=== PATIENT | female | born 1985 | race African-American/Black ===

== ENCOUNTER 2017-04-02 01:01 | Inpatient (IN) | payer OTHER ==
--- NOTE | 2017-04-02 01:51 | PDOC ---
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 The patient reports that she was diagnosed with a DVT in the right leg 6 months ago and has been treated on xeralto. However, she states over the past few weeks she has been experiencing worsening pain and swelling to her right leg prompting her presentation to the ED for evaluation. She denies fevers, chills , SOB, chest pain, abdominal pain, nausea, vomiting, or changes with urination or bowel movements. Past History - Past Medical History Allergies/Adverse Reactions: Allergies Allergy/AdvReac Type Severity Reaction Status Date / Time No Known Allergies Allergy Verified 04/02/17 01:37 Home Medications: Ambulatory Orders NK [No Known Home Medication] 04/27/15 - Reproductive History (#): 2 Para: 1 Therapeutic (s) & number: No Spontaneous : 0 - Suicide/Smoking/Psychosocial Hx Smoking History: Never smoked Have you smoked in the past 12 months: No Number of Cigarettes Smoked Daily: 3 Information on smoking cessation initiated: No 'Breaking Loose' booklet given: 02/13/14 Hx Alcohol Use: No Drug/Substance Use Hx: No Substance Use Type: None Hx Substance Use Treatment: No Review of Systems - Review of Systems Comments:: 04/02/17 02:07 Constitutional: No fevers, chills, fatigue, malaise HEENT: No Rhinorrhea, nasal congestion, visual changes Cardiovascular: No chest pain, syncope, palpitations, lightheadedness Respiratory: No Cough, SOB, Hemoptysis, Gastrointestinal: No Abdominal pain, Nausea, Vomiting, Constipation, Diarrhea, Melena Genitourinary: No Dysuria, Frequency, Urgency, Hesitancy, Hematuria, Flank pain Musculoskeletal: Right lower extremity swelling and pain. No Myalgia, arthralgia Skin: No rashes, itching, bruising, pallor Neurologic: No Headache, Dizziness, Numbness, Weakness, or Tingling Psychiatric: No Hallucinations. No SI or HI *Physical Exam - Vital Signs Last Vital Signs Temp Pulse Resp BP Pulse Ox 98.9 F 78 18 150/83 100 04/02/17 01:37 04/02/17 01:37 04/02/17 01:37 04/02/17 01:37 04/02/17 01:37 - Physical Exam Comments: 04/02/17 02:08 General Appearance: Nourished. No Apparent Distress HEENT: No Pharyngeal Erythema, Tonsillar Exudate, Tonsillar Erythema Neck: No Cervical Lymphadenopathy Respiratory/Chest: Lungs Clear, Normal Breath Sounds. No Crackles, Rales, Rhonchi, Wheezing Cardiovascular: Regular Rhythm, Regular Rate. No Murmur, Gallops, Rubs Gastrointestinal/Abdominal: Normal Bowel Sounds, Soft. No Guarding, Rebound, Tenderness Musculoskeletal: No CVA Tenderness Extremity: Right lower extremity 3+ pitting edema up to the thigh with tenderness to palpation. 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 Given the patient's history of a DVT and worsening symptoms, it is likely her complaints are due to a worsening DVT in the right leg despite the patient being on xeralto. We will obtain a cbc, cmp, coags and a dvt us to evaluate further. We will continue to monitor and reassess. 04/02/17 03:55 CBC, cmp are unremarkable. DVT US demonstrates DVT from the superficial femoral to the popleteal veins as preliminarily read by the contact lens blocker and cutter radiologist. We discussed the results with the patient who is refusing heparin at this time. She will require admission for further management. 04/02/17 04:41 We discussed with the hospitalist team who accepted the patient for admission. The patient is continuing to refuse heparin at this time. *DC/Admit/Observation/Transfer Diagnosis at time of Disposition: DVT (deep venous thrombosis) Qualifiers: DVT location: lower extremity Affected thrombotic vein of extremity: popliteal Chronicity: unspecified Laterality: right Qualified Code(s): I82.431 - Acute embolism and thrombosis of right popliteal vein - Discharge Dispostion Condition at time of disposition: Stable Admit: Yes - Referrals - Patient Instructions - Post Discharge Activity
--- NOTE | 2017-04-02 02:05 | PDOC ---
Attending Attestation - HPI HPI: 04/02/17 02:08 The patient is a 31 year old female, with a recent past medical history of DVT, who presents to the emergency department with worsening right lower extremity swelling and pain. Patient reports she was diagnosed with a DVT in the right leg 6 months ago and was treated with Xarelto. Over the past few weeks patient reports she has noted increased swelling and pain to her right leg, which brought her to the ER today. She denies any numbness or tingling in the lower extremities. She denies any associated chest pain, shortness of breath, diaphoresis, or palpitations. She denies any recent fever, chills, cough, headache, or dizziness. She denies any abdominal pain, nausea, or vomiting. She denies any recent travel or sick contacts. Allergies: NKDA - Medical Decision Making 04/02/17 02:08 Documentation prepared by Hunter Perez, acting as er medical technician for Jaleesa Vaughan MD. <Hunter Perez - Last Filed: 04/02/17 02:08> - Resident Resident Name: Zion Casas - ED Attending Attestation I have performed the following: I have examined & evaluated the patient, The case was reviewed & discussed with the resident, I agree w/resident's findings & plan - Physicial Exam PE: 04/02/17 04:26 Agree with resident exam. Pt has no visible swelling or redness of right lateral thigh. Pt states that she "felt funny" and knew something was wrong in that area. - Medical Decision Making 04/02/17 03:55 Patient Name: TALON ISSA THIS IS A PRELIMINARY REPORT FROM [facility] DATE OF SERVICE: 2017-04-02 01:51:16 IMAGES: 43 EXAM: DUPLEX VASCULAR US-2 LEGS HISTORY: Concern for deep vein thrombosis COMPARISON: None. FINDINGS: There is echogenic material within a noncompressible superficial femoral vein on the right. This extends to the popliteal vein. IMPRESSION: Positive for deep vein thrombosis extending from the mid superficial femoral vein on the right to the popliteal vein. THIS DOCUMENT HAS BEEN ELECTRONICALLY SIGNED 04/02/17 04:27 Pt undestands that her DVT is getting larger, but she is refusing heparin at this time. She wants to speak to her vasc surgeon in the AM. We have paged Dr. Saldana multiple times, no response. <Jaleesa Vaughan - Last Filed: 04/02/17 04:28>
[2017-04-02 02:59] LABS: BASO % 0.4 % (0-2.0); EOS % 2.1 % (0-4.5); HEMATOCRIT 39.7 % (32.4-45.2); HEMOGLOBIN 12.9 GM/dL (10.7-15.3); LYMPH % 27.9 % (8-40); MCH 27.1 pg (25.7-33.7); MCHC 32.6 g/dl (32.0-36.0); MEAN CELL VOLUME 83.1 fl (80-96); MEAN PLT VOLUME 8.3 fl (7.5-11.1); MONO % 4.8 % (3.8-10.2); NEUT % 64.8 % (42.8-82.8); PLATELET COUNT 301 K/MM3 (134-434); RBC 4.77 M/mm3 (3.60-5.2); RDW 13.5 % (11.6-15.6); WHITE BLOOD COUNT 10.9 K/mm3 (4.0-10.0)
[2017-04-02 03:22] LABS: INR 1.27 (0.82-1.09); PROTHROMBIN TIME (PATIENT) 14.4 SEC (9.98-11.88)
[2017-04-02 03:29] LABS: ALBUMIN 3.6 g/dl (3.4-5.0); ALK PHOS 74 U/L (45-117); ANION GAP 7 (8-16); BILIRUBIN,TOTAL 0.3 mg/dL (0.2-1.0); BLOOD UREA NITROGEN 11 mg/dL (7-18); CALCIUM 8.5 mg/dL (8.5-10.1); CHLORIDE 105 mmol/L (98-107); CO2 26 mmol/L (21-32); GLUCOSE,RANDOM 94 mg/dL (74-106); SGOT/AST 17 U/L (15-37); SGPT/ALT 23 U/L (12-78); SODIUM 138 mmol/L (136-145); TOT PROT 7.2 g/dl (6.4-8.2)
--- NOTE | 2017-04-02 05:50 | PN ---
Teaching Attending Note Name of Resident: Azul Rucker ATTENDING PHYSICIAN STATEMENT I saw and evaluated the patient. I reviewed the resident's note and discussed the case with the resident. I agree with the resident's findings and plan as documented. SUBJECTIVE: OBJECTIVE: ASSESSMENT AND PLAN: 31 y/o female with class III obesity presented to the hospital with acute swelling of the Right thigh, patient has a history of DVT that was being managed with Rivaroxiban daily, according to the patient and her boyfriend she was taking the medication frequently every night at 10pm. she presented to today with the pain in her calf and swelling and is being admitted for acute DVT patient and her partner were refusing initially to be started or taking any medication in the ER, she refused heparin drip and stated that she doesn't trust the doctors since they have not found out what is wrong with her. the patient at one point was thinking of signing out AMA because she does not want to stay. however i convinced her to stay to start the therapy plan: admit to the hospital as observation start the patient on heparin obtain coagulation factors study. obtain PT/INR initially, mix-studies consult hematology consult vascular stop rivaroxiban
[2017-04-02] MEDS ORDERED: HEPARIN NA (PORCINE) 5,000 UNITS/ML 1ML VIAL IVPUSH PRN ×2 (06:57)
[2017-04-02] MEDS ORDERED: HEPARIN NA (PORCINE) 5,000 UNITS/ML 1ML VIAL IVPUSH ONE (06:58)
[2017-04-02] MEDS ORDERED: HEPARIN - 25,000 UNIT in SODIUM CHLORIDE 495 ML IV SCH (07:00)
--- NOTE | 2017-04-02 07:00 | HP ---
CHIEF COMPLAINT: Right LE swelling and pain PCP: none HISTORY OF PRESENT ILLNESS: 31F with PMH of DVT (6 mo ago, on Xarelto) and morbid obesity, presents with Right LE swelling and pain. Symptoms have been increasing over the past few weeks, but got significantly worse yesterday prompting pt to come to ER. Pt reports strict compliance with Xarelto. Pt denies trauma to the site. Pt denies OCP use. Pt denies any other medical conditions. Pt's boyfriend is at bedside. At first, pt refusing heparin drip, now agreeable. Pt denies chest pain, palpitations, dyspnea, abdominal pain, fever, chills, headache, dizziness , nausea, vomiting. ER course was notable for: (1) LE Duplex reveals DVT to Right LE from mid superifical femoral to popliteal veins on prelim read (2) VSS (3) mild leukocytosis PAST MEDICAL HISTORY: DVT (6 mo ago, on Xarelto) morbid obesity PAST SURGICAL HISTORY: 2007, Social History: Smokin cigarettes daily Alcohol: denies Drugs: denies Family History: mom - DM, htn Allergies No Known Allergies Allergy (Verified 04/02/17 01:37) HOME MEDICATIONS: Home Medications Medication Instructions Recorded NK [No Known Home Medication] 04/27/15 REVIEW OF SYSTEMS CONSTITUTIONAL: Absent: fever, chills, diaphoresis, generalized weakness HEENT: Absent: rhinorrhea, nasal congestion, visual changes CARDIOVASCULAR: Absent: chest pain, syncope, palpitations, irregular heart rate, lightheadedness RESPIRATORY: Absent: cough, shortness of breath, wheezing, stridor, hemoptysis GASTROINTESTINAL: Absent: abdominal pain, abdominal distension, nausea, vomiting, diarrhea, constipation, melena, hematochezia GENITOURINARY: Absent: dysuria, frequency, urgency, hesitancy, hematuria MUSCULOSKELETAL: Right LE swelling and pain Absent: myalgia, arthralgia, joint swelling, back pain, neck pain SKIN: Absent: rash, itching, pallor NEUROLOGIC: Absent: headache, focal weakness or paresthesias, dizziness PSYCHIATRIC: Absent: anxiety, depression, suicidal or homicidal ideation, hallucinations. PHYSICAL EXAMINATION Vital Signs - 24 hr 04/02/17 01:37 Temperature 98.9 F Pulse Rate 78 Respiratory 18 Rate Blood Pressure 150/83 O2 Sat by Pulse 100 Oximetry (%) GENERAL: Awake, alert, and fully oriented, in no acute distress. HEAD: Normal with no signs of trauma. EARS, NOSE, THROAT: Moist mucous membranes. NECK: Supple without lymphadenopathy. LUNGS: Breath sounds equal, clear to auscultation bilaterally. No wheezes, and no crackles. No accessory muscle use. HEART: Regular rate and rhythm, normal S1 and S2 without murmur, rub or gallop. ABDOMEN: Soft, nontender, not distended, normoactive bowel sounds, no guarding. LOWER EXTREMITIES: Right LE with 3+ pitting edema up to the thigh, +tenderness. 2+ [place] pulses. NEUROLOGICAL: Cranial nerves II-XII grossly intact. Normal speech. PSYCHIATRIC: Cooperative. Good eye contact. Appropriate mood and affect. SKIN: Warm, dry, normal turgor, no rashes or lesions noted. Laboratory Results - last 24 hr 04/02/17 04/02/17 04/02/17 02:46 02:46 02:46 WBC 10.9 H D RBC 4.77 Hgb 12.9 Hct 39.7 MCV 83.1 MCH 27.1 MCHC 32.6 RDW 13.5 Plt Count 301 MPV 8.3 Neutrophils % 64.8 Lymphocytes % 27.9 Monocytes % 4.8 Eosinophils % 2.1 Basophils % 0.4 PT with INR INR PTT (Actin FS) 39.2 H Sodium 138 Potassium 4.0 Chloride 105 Carbon Dioxide 26 Anion Gap 7 L BUN 11 Creatinine 1.0 Creat Clearance w eGFR > 60 Random Glucose 94 Calcium 8.5 Total Bilirubin 0.3 AST 17 ALT 23 Alkaline Phosphatase 74 Total Protein 7.2 Albumin 3.6 04/02/17 02:46 WBC RBC Hgb Hct MCV MCH MCHC RDW Plt Count MPV Neutrophils % Lymphocytes % Monocytes % Eosinophils % Basophils % PT with INR 14.40 H INR 1.27 H PTT (Actin FS) Sodium Potassium Chloride Carbon Dioxide Anion Gap BUN Creatinine Creat Clearance w eGFR Random Glucose Calcium Total Bilirubin AST ALT Alkaline Phosphatase Total Protein Albumin ASSESSMENT/PLAN: 31F with PMH of DVT (6 mo ago, on Xarelto), presents with Right LE swelling and pain, admitted to Obs for acute DVT. # acute Right LE DVT - heparin drip -> monitor PTT - heparin bolus now - hold Xarelto - Vascular Surgery Consult - Hematology Consult # mild leukocytosis - likely reactive - continue to monitor # FEN - Fluids: po - Electrolytes: wnl, continue to monitor - Nutrition: regular diet Visit type - Emergency Visit Emergency Visit: Yes ED Registration Date: 04/02/17 Care time: The patient presented to the Emergency Department on the above date and was hospitalized for further evaluation of their emergent condition. - New Patient This patient is new to me today: Yes Date on this admission: 04/02/17 - Critical Care Critical Care patient: No Hospitalist Screening - Colonoscopy Questionnaire Colonoscopy Questionnaire: Colonoscopy Questionnaire - Patient: 50 - 75 years old and never had a screening colonoscopy: No History of colon or rectal polyps, or CA: Unknown History of IBD, Crohn's disease or UC: Unknown History of abdominal radiation therapy as a child: Unknown - Relative: 1 with colon or rectal CA, or polyps at age 60 or younger: Unknown Colon or rectal CA diagnosed at age 45 or younger: Unknown Multiple relatives with colon or rectal CA: Unknown - Outcome: Screening Result: Negative Screen
[2017-04-02 08:29] VITALS: BMI 48.5
[2017-04-02] MEDS ORDERED: ENOXAPARIN NA (PORCINE) 40 MG/0.4 ML DISP.SYRIN SQ ONE ×2 (09:19→19:57)
[2017-04-02] MEDS ORDERED: ENOXAPARIN NA (PORCINE) 100 MG/1 ML DISP.SYRIN SQ ONE ×2 (09:19→19:57)
[2017-04-02] MEDS ORDERED: ENOXAPARIN NA (PORCINE) 40 MG/0.4 ML DISP.SYRIN SQ SCH (10:00)
[2017-04-02] MEDS: ENOXAPARIN 100 MG, ENOXAPARIN 40 MG SQ SCH ×2 (10:28→21:18)
--- NOTE | 2017-04-02 12:08 | CONSULT ---
Consult Consult Specialty:: Hematology - History of Present Illness History of Present Illness: 31 year old female with a history of DVT on xeralto who presents for evaluation of worsening right lower extremity swelling and pain. The patient reports that she was diagnosed with a DVT in the right leg at [facility] has been treated on xeralto. However, she states over the past few weeks she has been experiencing worsening pain and swelling to her right leg prompting her presentation to the ED for evaluation. She denies fevers, chills, SOB, chest pain, abdominal pain, nausea, vomiting, or changes with urination or bowel movements. Sees hematology. - History Source History Provided By: Patient, Family Member, Medical Record - Past Medical History ...LMP: 03/08/17 ...: No - Alcohol/Substance Use Hx Alcohol Use: No - Smoking History Smoking history: Current every day smoker Have you smoked in the past 12 months: Yes Aproximately how many cigarettes per day: 10 Home Medications - Allergies Allergies/Adverse Reactions: Allergies Allergy/AdvReac Type Severity Reaction Status Date / Time No Known Allergies Allergy Verified 04/02/17 01:37 - Home Medications Home Medications: Ambulatory Orders NK [No Known Home Medication] 04/27/15 Review of Systems - Review of Systems Musculoskeletal: reports: Extremity Pain Physical Exam Vital Signs: Vital Signs Temperature 98.6 F 04/02/17 08:10 Pulse Rate 68 04/02/17 08:10 Respiratory Rate 18 04/02/17 08:10 Blood Pressure 124/78 04/02/17 08:10 O2 Sat by Pulse Oximetry (%) 100 04/02/17 01:37 Constitutional: Yes: Well Nourished, No Distress, Anxious Eyes: Yes: Conjunctiva Clear HENT: Yes: Atraumatic, Normocephalic Neck: Yes: Supple, Trachea Midline Cardiovascular: Yes: Regular Rate and Rhythm Respiratory: Yes: Regular, CTA Bilaterally Gastrointestinal: Yes: Normal Bowel Sounds, Soft, Abdomen, Obese Extremities: Yes: Other (rle >> lle) Edema: Yes Neurological: Yes: Alert, Oriented Labs: CBC, BMP 04/02/17 02:46 04/02/17 02:46 Imaging - Results Ultrasound: Report Reviewed Problem List - Problems (1) DVT (deep venous thrombosis) Code(s): I82.409 - ACUTE EMBOLISM AND THOMBOS UNSP DEEP VN UNSP LOWER EXTREMITY Qualifiers: DVT location: lower extremity Affected thrombotic vein of extremity: popliteal Chronicity: unspecified Laterality: right Qualified Code(s): I82.431 - Acute embolism and thrombosis of right popliteal vein Assessment/Plan ACUTE DVT ( second episode) Rt LE Xarelto failure LA was positive, will repeat now as she is off xarelto Other hypercoag w/u was negative in 2017 Long discussion about choice of AC going forward Did not want heparin drip therefore had to continue Lovenox ( though BMI >40) to bridge to coumadin with INR of 2-3, discussed in detail with spouse and pt. for anti xa levels 4hrs post lovenox tomorrow leg elevation for indefinite AC likely in this young pt Discussed with her OP practicing urologist for f/u with him upon DC. tt 40m
--- NOTE | 2017-04-02 14:01 | PN ---
Physical Exam: SUBJECTIVE: Patient seen and examined at the bedside. Patient reports that she does not have a family history of DVT or PE. She reports that about 1 year ago, she fell going down the stairs when her right leg gave out. She developed a hematoma of the right leg after the fall. After that incident, she developed pain and swelling of that leg and was told she had a DVT and was put on Xarelto by her power hammer operator. She states she was compliant with her Xarelto 20mg daily and took it daily at 10a.m. She reports that her right leg remains swollen and painful prompting her ED visit. OBJECTIVE: Vascular study, right leg acute DVT extending from the right mid superficial femoral vein to the popliteal vein. patient refusing heparin drip, agreeable to Lovenox Will bridge to Coumadin Vital Signs Period Temp Pulse Resp BP Sys/[place] Pulse Ox Last 24 Hr 98.6 F-98.9 F 68-78 18-18 124-150/78-83 100 GENERAL: The patient is awake, alert, and fully oriented, in no acute distress. HEAD: Normal with no signs of trauma. EYES: PERRL, extraocular movements intact, sclera anicteric, conjunctiva clear. No ptosis. ENT: Ears normal, nares patent, oropharynx clear without exudates, moist mucous membranes. NECK: Trachea midline, full range of motion, supple. LUNGS: Breath sounds equal, clear to auscultation bilaterally, no wheezes, no crackles, no accessory muscle use. HEART: Regular rate and rhythm ABDOMEN: Soft, nontender, nondistended, normoactive bowel sounds, no guarding, no rebound, no hepatosplenomegaly, no masses. EXTREMITIES: Right leg painful to touch, calf tenderness NEUROLOGICAL: Normal speech, gait not observed. PSYCH: Normal mood, normal affect. SKIN: Warm, dry, normal turgor, no rashes or lesions noted Laboratory Results - last 24 hr 04/02/17 04/02/17 04/02/17 02:46 02:46 02:46 WBC 10.9 H D RBC 4.77 Hgb 12.9 Hct 39.7 MCV 83.1 MCH 27.1 MCHC 32.6 RDW 13.5 Plt Count 301 MPV 8.3 Neutrophils % 64.8 Lymphocytes % 27.9 Monocytes % 4.8 Eosinophils % 2.1 Basophils % 0.4 PT with INR INR PTT (Actin FS) 39.2 H Sodium 138 Potassium 4.0 Chloride 105 Carbon Dioxide 26 Anion Gap 7 L BUN 11 Creatinine 1.0 Creat Clearance w eGFR > 60 Random Glucose 94 Calcium 8.5 Total Bilirubin 0.3 AST 17 ALT 23 Alkaline Phosphatase 74 Total Protein 7.2 Albumin 3.6 04/02/17 02:46 WBC RBC Hgb Hct MCV MCH MCHC RDW Plt Count MPV Neutrophils % Lymphocytes % Monocytes % Eosinophils % Basophils % PT with INR 14.40 H INR 1.27 H PTT (Actin FS) Sodium Potassium Chloride Carbon Dioxide Anion Gap BUN Creatinine Creat Clearance w eGFR Random Glucose Calcium Total Bilirubin AST ALT Alkaline Phosphatase Total Protein Albumin Active Medications Generic Name Dose Route Start Last Admin Trade Name Freq PRN Reason Stop Dose Admin Acetaminophen 650 mg 04/02/17 14:00 Tylenol - PO Q6H [facility] Enoxaparin Sodium 100 mg/ 140 mg 04/02/17 10:00 04/02/17 10:28 Enoxaparin Sodium 40 mg SQ 140 mg BID [facility] Administration Nicotine 21 mg 04/02/17 14:00 Nicoderm Patch - TD DAILY [facility] Warfarin Sodium 7.5 mg 04/02/17 18:00 Coumadin - PO DAILY@1800 [facility] ASSESSMENT/PLAN: Patient is a 31 year old female with a significant past medical history of DVT ( on Xarelto) and morbid obesity. She presents to the ED on 04/02/2017 with complaints of right lower extremity pain and swelling. Patient reports that her right leg symptoms have been increasing in the past few days. She reports compliance with her Xarelto that she takes daily at 10.a.m. Patient denies any trauma to the site, is on on control pills and is currently a pack a day smoker. Patient reports that she does not have a family history of DVT or PE. She reports that about 1 year ago, she fell going down the stairs when her right leg gave out. She developed a hematoma of the right leg after the fall. After that incident, she developed pain and swelling of that leg and was told she had a DVT and was put on Xarelto by her power hammer operator. She states she was compliant with her Xarelto 20mg daily and took it daily at 10a.m. She reports that her right leg remains swollen and painful prompting her ED visit. On admission, patient refused initiation of a heparin drip, but is agreeable to Lovenox injections. She understands that we will be bridging her to Coumadin. I discussed the importance of smoking cessation, she denies control use, denies recent travel, denies any trauma. She does not report any family history of DVT/PE or any other hematological conditions. Imaging: Vascular study, right leg acute DVT extending from the right mid superficial femoral vein to the popliteal vein. Hematology: Right Leg DVT: Stop Xarelto, on Lovenox weight based @ 140mg BID with a bridge to Coumadin with a goal inr between 2 and 3 Vascular study shows acute right leg DVT Has had hypercoag study with her power hammer operator Hematology following Vascular consult Right leg pain controlled with Tylenol 650mg scheduled Psyche: Smoke cessation discussed On Nicotine patch F.E.N. Fluids: PO adequate, monitor electrolytes, regular diet Prophylaxis: On coumadin, zantac Visit type - Emergency Visit Emergency Visit: Yes ED Registration Date: 04/02/17 Care time: The patient presented to the Emergency Department on the above date and was hospitalized for further evaluation of their emergent condition. - New Patient This patient is new to me today: Yes Date on this admission: 04/02/17 - Critical Care Critical Care patient: No - Discharge Referral Referred to [facility] Yes Physician Referral: Jelani Hou MD ([facility])
[2017-04-02] MEDS: NICOTINE 21 MG/24 HOURS TOPICAL PATCH TD SCH (16:28)
[2017-04-02] MEDS: ACETAMINOPHEN 325 MG TABLET (FP) PO SCH (16:31)
[2017-04-02] MEDS ORDERED: RIVAROXABAN 15 MG TABLET PO SCH (18:00)
[2017-04-02] MEDS: WARFARIN NA 7.5 MG TABLET (FP) PO SCH (18:34)
[2017-04-03] MEDS: ACETAMINOPHEN 325 MG TABLET (FP) PO SCH ×2 (07:19→07:20)
[2017-04-03 07:52] LABS: INR 1.18 (0.82-1.09); PROTHROMBIN TIME (PATIENT) 13.3 SEC (9.98-11.88)
[2017-04-03] MEDS ORDERED: ACETAMINOPHEN 325 MG TABLET (FP) PO PRN (08:10)
[2017-04-03] MEDS ORDERED: ENOXAPARIN NA (PORCINE) 100 MG/1 ML DISP.SYRIN SQ ONE ×2 (08:43→20:55)
[2017-04-03] MEDS ORDERED: ENOXAPARIN NA (PORCINE) 40 MG/0.4 ML DISP.SYRIN SQ ONE ×2 (08:43→20:54)
[2017-04-03] MEDS: traMADol HCL 50 MG TABLET PO PRN (08:47)
[2017-04-03] MEDS: NICOTINE 21 MG/24 HOURS TOPICAL PATCH TD SCH (09:11)
[2017-04-03] MEDS: RANITIDINE HCL 150 MG TABLET (FP) PO SCH (09:12)
[2017-04-03] MEDS: ENOXAPARIN 100 MG, ENOXAPARIN 40 MG SQ SCH ×2 (09:12→20:59)
[2017-04-03 11:05] LABS: ALBUMIN 3.5 g/dl (3.4-5.0); ANION GAP 9 (8-16); BLOOD UREA NITROGEN 9 mg/dL (7-18); CALCIUM 8.1 mg/dL (8.5-10.1); CHLORIDE 105 mmol/L (98-107); CO2 24 mmol/L (21-32); GLUCOSE,RANDOM 93 mg/dL (74-106); POTASSIUM 3.5 mmol/L (3.5-5.1); SODIUM 138 mmol/L (136-145)
[2017-04-03 11:08] LABS: BILIRUBIN,TOTAL 0.5 mg/dL (0.2-1.0); CHOLESTEROL 139 mg/dL (50-200); CREATININE 0.9 mg/dL (0.55-1.02); LDL CHOLESTEROL (ONLY SJRH) 83 mg/dL (5-100); SGOT/AST 20 U/L (15-37); SGPT/ALT 22 U/L (12-78); TRIGLYCERIDES 97 mg/dL (35-160)
[2017-04-03 11:09] LABS: ALK PHOS 74 U/L (45-117); HDL CHOLESTEROL 48 mg/dL (40-60)
[2017-04-03] MEDS ORDERED: LORazepam 0.5 MG TABLET PO ONE (11:28)
--- NOTE | 2017-04-03 11:29 | PN ---
Physical Exam: SUBJECTIVE: Patient seen and examined at the bedside. OBJECTIVE: Reports feeling overwhelmed, wants surgical options. Her asking about possible IVC filter, but wants to discuss benefits and risk with surgeon first Assured them that vascular and IR have been consulted Not short of breath, no chest pain Echo ordered as pt has hypertension and is morbidly obese BP slightly elevated, pt very anxious, crying Will watch BP and trend, may start lisinopril later today if remains elevated emotional support provided, and patient reassured ativan 0.5mg x 1, tramadol ordered, tylenol not relieving pain Vital Signs Period Temp Pulse Resp BP Sys/[place] Pulse Ox Last 24 Hr 97.6 F-98.9 F 64-88 18-18 136-154/60-99 GENERAL: The patient is awake, alert, and fully oriented, in no acute distress. HEAD: Normal with no signs of trauma. EYES: PERRL, extraocular movements intact, sclera anicteric, conjunctiva clear. No ptosis. ENT: Ears normal, nares patent, oropharynx clear without exudates, moist mucous membranes. NECK: Trachea midline, full range of motion, supple. LUNGS: Breath sounds equal, clear to auscultation bilaterally, no wheezes, no crackles, no accessory muscle use. HEART: Regular rate and rhythm ABDOMEN: Soft, nontender, nondistended, normoactive bowel sounds, no guarding, no rebound, no hepatosplenomegaly, no masses. EXTREMITIES: Right leg painful to touch, calf tenderness NEUROLOGICAL: Normal speech, gait not observed. PSYCH: Normal mood, normal affect. SKIN: Warm, dry, normal turgor, no rashes or lesions noted Laboratory Results - last 24 hr 04/03/17 04/03/17 07:00 10:45 PT with INR 13.30 H INR 1.18 H Sodium 138 Potassium 3.5 Chloride 105 Carbon Dioxide 24 Anion Gap 9 BUN 9 Creatinine 0.9 Creat Clearance w eGFR > 60 Random Glucose 93 Calcium 8.1 L Total Bilirubin 0.5 D AST 20 ALT 22 Alkaline Phosphatase 74 Total Protein 7.0 Albumin 3.5 Triglycerides 97 Cholesterol 139 Total LDL Cholesterol 83 HDL Cholesterol 48 Active Medications Generic Name Dose Route Start Last Admin Trade Name Freq PRN Reason Stop Dose Admin Acetaminophen 650 mg 04/03/17 08:10 Tylenol - PO Q6H PRN FEVER Enoxaparin Sodium 100 mg/ 140 mg 04/02/17 10:00 04/03/17 09:12 Enoxaparin Sodium 40 mg SQ 140 mg BID DARON Administration Nicotine 21 mg 04/02/17 14:00 04/03/17 09:11 Nicoderm Patch - TD 21 mg DAILY DARON Administration Ranitidine HCl 150 mg 04/03/17 10:00 04/03/17 09:12 Zantac - PO 150 mg DAILY DARON Administration Tramadol HCl 50 mg 04/03/17 08:09 04/03/17 08:47 Ultram - PO 50 mg Q8H PRN Administration PAIN LEVEL 7 - 10 Warfarin Sodium 7.5 mg 04/02/17 18:00 04/02/17 18:34 Coumadin - PO 7.5 mg DAILY@1800 DARON Administration ASSESSMENT/PLAN: Patient is a 31 year old female with a significant past medical history of DVT ( on Xarelto) and morbid obesity. She presents to the ED on 04/02/2017 with complaints of right lower extremity pain and swelling. Patient reports that her right leg symptoms have been increasing in the past few days. She reports compliance with her Xarelto that she takes daily at 10.a.m. Patient denies any trauma to the site, is not on control pills but is currently a pack a day smoker. Patient reports that she does not have a family history of DVT or PE. She reports that about 1 year ago, she fell going down the stairs when her right leg gave out. She developed a hematoma of the right leg after the fall. After that incident, she developed pain and swelling of that leg and was told she had a DVT and was put on Xarelto by her cosmetic dentist. She states she was compliant with her Xarelto 20mg daily and took it daily at 10a.m. She reports that her right leg remains swollen and painful prompting her ED visit. On admission, patient refused initiation of a heparin drip, but is agreeable to Lovenox injections. She understands that we will be bridging her to Coumadin. I discussed the importance of smoking cessation, she denies control use, denies recent travel, denies any trauma. She does not report any family history of DVT/PE or any other hematological conditions. Imaging: Vascular study, right leg acute DVT extending from the right mid superficial femoral vein to the popliteal vein. Hematology: Right Leg DVT: Stop Xarelto, on Lovenox weight based @ 140mg BID with a bridge to Coumadin with a goal inr between 2 and 3 Vascular study shows acute right leg DVT Has had hypercoag study with her cosmetic dentist Hematology following Vascular consult Patient exploring possible surgical options Right leg pain not controlled with Tylenol 650mg, start Ultram Cardiology: Hypertension BPs trending up, monitor May start lisinopril low dose if remains elevated Monitor trend EKG and echo ordered Psyche: Current smoker, risk factor for development of DVT Smoking cessation discussed On Nicotine patch Morbid obesity Risk factor for DVT dietary consult ordered F.E.N. Fluids: PO adequate, monitor electrolytes, regular diet Prophylaxis: On coumadin, zantac Visit type - Emergency Visit Emergency Visit: Yes ED Registration Date: 04/02/17 Care time: The patient presented to the Emergency Department on the above date and was hospitalized for further evaluation of their emergent condition. - New Patient This patient is new to me today: No - Critical Care Critical Care patient: No - Discharge Referral Referred to [facility] Med P.C.: No
--- NOTE | 2017-04-03 15:00 | PN ---
Progress Note (short form) - Note Progress Note: Pt seen and examined. No events, leg feels "heavy". Constitutional: Yes: Well Nourished, No Distress, Anxious Eyes: Yes: Conjunctiva Clear HENT: Yes: Atraumatic, Normocephalic Neck: Yes: Supple, Trachea Midline Cardiovascular: Yes: Regular Rate and Rhythm Respiratory: Yes: Regular, CTA Bilaterally Gastrointestinal: Yes: Normal Bowel Sounds, Soft, Abdomen, Obese Extremities: (rle >> lle) Edema: Yes Neurological: Yes: Alert, Oriented Last Vital Signs Temp Pulse Resp BP Pulse Ox 97.6 F 65 18 141/84 100 04/03/17 10:07 04/03/17 10:07 04/03/17 10:07 04/03/17 10:07 04/02/17 01:37 CBC, BMP 04/02/17 02:46 04/03/17 10:45 Current Medications Generic Name Dose Route Start Last Admin Trade Name Freq PRN Reason Stop Dose Admin Acetaminophen 650 mg 04/03/17 08:10 Tylenol - PO Q6H PRN FEVER Enoxaparin Sodium 100 mg/ 140 mg 04/02/17 10:00 04/03/17 09:12 Enoxaparin Sodium 40 mg SQ 140 mg BID DARON Administration Lorazepam 0.5 mg 04/03/17 14:36 Ativan - PO BID PRN ANXIETY Nicotine 21 mg 04/02/17 14:00 04/03/17 09:11 Nicoderm Patch - TD 21 mg DAILY DARON Administration Ranitidine HCl 150 mg 04/03/17 10:00 04/03/17 09:12 Zantac - PO 150 mg DAILY DARON Administration Tramadol HCl 50 mg 04/03/17 08:09 04/03/17 08:47 Ultram - PO 50 mg Q8H PRN Administration PAIN LEVEL 7 - 10 Warfarin Sodium 7.5 mg 04/02/17 18:00 04/02/17 18:34 Coumadin - PO 7.5 mg DAILY@1800 DARON Administration ACUTE DVT ( second episode) Rt LE lovenox to coumadin bridge INR not therapeutic as to be expected if any procedures planned , will hold coumadin and then give UFH or LMWH ( dose to be stopped the night prior). d/w pt. d/w hospitalist [employer] Problem List - Problems (1) DVT (deep venous thrombosis) Code(s): I82.409 - ACUTE EMBOLISM AND THOMBOS UNSP DEEP VN UNSP LOWER EXTREMITY Qualifiers: DVT location: lower extremity Affected thrombotic vein of extremity: popliteal Chronicity: unspecified Laterality: right Qualified Code(s): I82.431 - Acute embolism and thrombosis of right popliteal vein
[2017-04-03] MEDS: WARFARIN NA 7.5 MG TABLET (FP) PO SCH (17:25)
--- NOTE | 2017-04-03 18:27 | EKG ---
Test Reason : Blood Pressure : / mmHG Vent. Rate : 063 BPM Atrial Rate : 063 BPM P-R Int : 162 ms QRS Dur : 094 ms QT Int : 438 ms P-R-T Axes : 043 034 008 degrees QTc Int : 448 ms SINUS RHYTHM WITH SINUS ARRHYTHMIA WITH OCCASIONAL PREMATURE VENTRICULAR COMPLEXES OTHERWISE NORMAL ECG NO PREVIOUS ECGS AVAILABLE Confirmed by MD VINCE, DEAN ([id number]) on 04/03/2017 6:27:26 PM Referred By: Lenny RUTLEDGE Confirmed By:DEAN CLARKE MD
[2017-04-03] MEDS ORDERED: LISINOPRIL 5 MG TABLET (FP) PO ONE (19:00)
[2017-04-03 20:52] LABS: URINE APPEARANCE CLEAR; URINE BILIRUBIN NEGATIVE (NEGATIVE); URINE BLOOD 3+ (NEGATIVE); URINE COLOR LTYELLOW; URINE GLUCOSE (UA) NEGATIVE (NEGATIVE); URINE KETONE NEGATIVE (NEGATIVE); URINE LEUK ESTERASE NEGATIVE (NEGATIVE); URINE NITRITE NEGATIVE (NEGATIVE); URINE UROBILINOGEN NEGATIVE mg/dL (0.2-1.0)
[2017-04-03] MEDS: LORazepam 0.5 MG TABLET PO PRN (20:59)
[2017-04-03 21:10] LABS: URINE PROTEIN 1+ (NEGATIVE)
[2017-04-03 21:11] LABS: EPI CELLS RARE /HPF (FEW); URINE BACTERIA RARE /hpf (NONE SEEN); URINE MUCUS RARE
[2017-04-04 07:12] LABS: ALBUMIN 3.2 g/dl (3.4-5.0); ANION GAP 11 (8-16); BLOOD UREA NITROGEN 8 mg/dL (7-18); CALCIUM 8.5 mg/dL (8.5-10.1); CHLORIDE 101 mmol/L (98-107); CO2 26 mmol/L (21-32); CREATININE 0.9 mg/dL (0.55-1.02); GLUCOSE,RANDOM 93 mg/dL (74-106); POTASSIUM 3.6 mmol/L (3.5-5.1); SGOT/AST 23 U/L (15-37); SGPT/ALT 30 U/L (12-78); SODIUM 138 mmol/L (136-145)
[2017-04-04 07:14] LABS: ALK PHOS 66 U/L (45-117); BILIRUBIN,TOTAL 0.4 mg/dL (0.2-1.0)
[2017-04-04] MEDS ORDERED: ENOXAPARIN NA (PORCINE) 100 MG/1 ML DISP.SYRIN SQ ONE ×2 (08:52→21:11)
[2017-04-04] MEDS ORDERED: ENOXAPARIN NA (PORCINE) 40 MG/0.4 ML DISP.SYRIN SQ ONE ×2 (08:52→21:11)
[2017-04-04] MEDS: ENOXAPARIN 100 MG, ENOXAPARIN 40 MG SQ SCH ×2 (09:02→21:17)
[2017-04-04] MEDS: RANITIDINE HCL 150 MG TABLET (FP) PO SCH (09:02)
[2017-04-04] MEDS: NICOTINE 21 MG/24 HOURS TOPICAL PATCH TD SCH (09:02)
[2017-04-04] MEDS: ACETAMINOPHEN 325 MG TABLET (FP) PO SCH (09:15)
[2017-04-04] MEDS ORDERED: LISINOPRIL 5 MG TABLET (FP) PO ONE (10:00)
[2017-04-04] MEDS: traMADol HCL 50 MG TABLET PO PRN (10:07)
[2017-04-04 10:53] LABS: BASO % 0.6 % (0-2.0); EOS % 0.5 % (0-4.5); HEMATOCRIT 41.3 % (32.4-45.2); HEMOGLOBIN 13.2 GM/dL (10.7-15.3); LYMPH % 19.8 % (8-40); MCH 26.6 pg (25.7-33.7); MCHC 32.1 g/dl (32.0-36.0); MEAN CELL VOLUME 82.9 fl (80-96); MEAN PLT VOLUME 7.7 fl (7.5-11.1); MONO % 4.5 % (3.8-10.2); NEUT % 74.6 % (42.8-82.8); PLATELET COUNT 301 K/MM3 (134-434); RBC 4.98 M/mm3 (3.60-5.2); RDW 13.7 % (11.6-15.6); WHITE BLOOD COUNT 9.2 K/mm3 (4.0-10.0)
[2017-04-04 11:09] LABS: INR 1.3 (0.82-1.09); PROTHROMBIN TIME (PATIENT) 14.7 SEC (9.98-11.88)
[2017-04-04 11:21] LABS: ALBUMIN 3.6 g/dl (3.4-5.0); ANION GAP 5 (8-16); BILIRUBIN,TOTAL 0.3 mg/dL (0.2-1.0); BLOOD UREA NITROGEN 8 mg/dL (7-18); CALCIUM 8.2 mg/dL (8.5-10.1); CHLORIDE 104 mmol/L (98-107); CO2 28 mmol/L (21-32); GLUCOSE,RANDOM 90 mg/dL (74-106); POTASSIUM 3.9 mmol/L (3.5-5.1); SGOT/AST 25 U/L (15-37); SGPT/ALT 30 U/L (12-78); SODIUM 137 mmol/L (136-145); TOT PROT 7.4 g/dl (6.4-8.2)
[2017-04-04 11:22] LABS: ALK PHOS 69 U/L (45-117)
--- NOTE | 2017-04-04 11:34 | CON.CARD ---
Consult Consult Specialty:: Cardiology Referred by:: Hospitalist Medicine Reason for Consultation:: Pre-procedure CV evaluation, PVC - History of Present Illness Chief Complaint: RLE swelling History of Present Illness: 31 year old female with a history of DVT post 6 month course of xarelto who presents for evaluation of worsening right lower extremity swelling and pain referable to recurrent acute RLE DVT, reports tobacco, denies OCP, prolonged immobility or family h/o thrombophilia. She denies fevers, chills, SOB, chest pain, near or true syncope, palpitations, abdominal pain, nausea, vomiting, or changes with urination or bowel movements. Sees hematology. - History Source History Provided By: Patient Limitations to Obtaining History: No Limitations - Past Medical History Cardio/Vascular: Yes: Deep Vein Thrombosis ...LMP: 03/08/17 ...: No - Alcohol/Substance Use Hx Alcohol Use: No - Smoking History Smoking history: Current every day smoker Have you smoked in the past 12 months: Yes Aproximately how many cigarettes per day: 10 Home Medications - Allergies Allergies/Adverse Reactions: Allergies Allergy/AdvReac Type Severity Reaction Status Date / Time No Known Allergies Allergy Verified 04/02/17 01:37 - Home Medications Home Medications: Ambulatory Orders NK [No Known Home Medication] 04/27/15 Review of Systems - Review of Systems Cardiovascular: reports: Edema Vital Signs: Vital Signs Temperature 97.0 F L 04/04/17 10:00 Pulse Rate 71 04/04/17 10:00 Respiratory Rate 18 04/04/17 10:00 Blood Pressure 138/62 04/04/17 10:00 O2 Sat by Pulse Oximetry (%) 99 04/03/17 22:00 Constitutional: Yes: No Distress, Calm Neck: Yes: Supple Respiratory: Yes: Regular, CTA Bilaterally Gastrointestinal: Yes: Normal Bowel Sounds, Soft, Abdomen, Obese Cardiovascular: Yes: Regular Rate and Rhythm, Other (with ectopic beats) JVD: No Carotid Bruit: No Edema: Yes Edema: LLE: 1+, RLE: 2+ - Other Data Labs, Other Data: CBC, BMP 04/04/17 10:45 04/04/17 10:45 INR, PTT INR 1.30 (0.82-1.09) H 04/04/17 10:45 NSR @ 63 PVC Echo: Pending Imaging - Results Ultrasound: Report Reviewed (Rt acute DVT) Problem List - Problems (1) Premature ventricular complex Code(s): I49.3 - VENTRICULAR PREMATURE DEPOLARIZATION (2) DVT (deep venous thrombosis) Code(s): I82.409 - ACUTE EMBOLISM AND THOMBOS UNSP DEEP VN UNSP LOWER EXTREMITY Qualifiers: DVT location: lower extremity Affected thrombotic vein of extremity: popliteal Chronicity: unspecified Laterality: right Qualified Code(s): I82.431 - Acute embolism and thrombosis of right popliteal vein Assessment/Plan 1. ACUTE DVT ( second episode) Rt LE unprovoked 2. PVC P:1. Lovenox->coumadin per INR 2. Vascular input regarding thombectomy 3. Holter monitor to evaluate arrhythmia burden 4. Echo to assess ventricular and valve fxn 5. Consider Toprol XL for BP control, patient may proceed with vascular procedure from CV-standpoint if clinically warranted 6. Thank you for consultative opportunity
--- NOTE | 2017-04-04 13:14 | PN ---
Physical Exam: SUBJECTIVE: Patient seen and examined at the bedside. No complaints, states she is anxious but understands our POC, goals. OBJECTIVE: Echo ordered: Holter monitor as per cardiology to assess PVC further Cardiology notes reviewed Vital Signs Period Temp Pulse Resp BP Sys/[place] Pulse Ox Last 24 Hr 97.0 F-99.2 F 56-97 18-18 116-144/60-88 99 GENERAL: The patient is awake, alert, and fully oriented, in no acute distress. HEAD: Normal with no signs of trauma. EYES: PERRL, extraocular movements intact, sclera anicteric, conjunctiva clear. No ptosis. ENT: Ears normal, nares patent, oropharynx clear without exudates, moist mucous membranes. NECK: Trachea midline, full range of motion, supple. LUNGS: Breath sounds equal, clear to auscultation bilaterally, no wheezes, no crackles, no accessory muscle use. HEART: Regular rate and rhythm, EKG shows sinus arrythmias with PVCs, to be further evaluated with a holter monitor ABDOMEN: Soft, nontender, nondistended, normoactive bowel sounds, no guarding, no rebound, no hepatosplenomegaly, no masses. EXTREMITIES: Right leg painful to touch, calf tenderness NEUROLOGICAL: Normal speech, gait not observed. PSYCH: Normal mood, normal affect. SKIN: Warm, dry, normal turgor, no rashes or lesions noted Laboratory Results - last 24 hr 04/03/17 04/04/17 04/04/17 20:15 06:20 10:45 WBC 9.2 RBC 4.98 Hgb 13.2 Hct 41.3 MCV 82.9 MCH 26.6 MCHC 32.1 RDW 13.7 Plt Count 301 MPV 7.7 Neutrophils % 74.6 Lymphocytes % 19.8 D Monocytes % 4.5 Eosinophils % 0.5 Basophils % 0.6 PT with INR INR Sodium 138 Potassium 3.6 Chloride 101 Carbon Dioxide 26 Anion Gap 11 BUN 8 Creatinine 0.9 Creat Clearance w eGFR > 60 Random Glucose 93 Calcium 8.5 Total Bilirubin 0.4 AST 23 ALT 30 Alkaline Phosphatase 66 Total Protein 7.0 Albumin 3.2 L Urine Color Ltyellow Urine Appearance Clear Urine pH 6.0 Ur Specific [place] 1.006 Urine Protein 1+ H Urine Glucose (UA) Negative Urine Ketones Negative Urine Blood 3+ H Urine Nitrite Negative Urine Bilirubin Negative Urine Urobilinogen Negative Ur Leukocyte Esterase Negative Urine WBC (Auto) 16 Urine RBC (Auto) 58 Ur Epithelial Cells Rare Urine Bacteria Rare Urine Mucus Rare 04/04/17 04/04/17 10:45 10:45 WBC RBC Hgb Hct MCV MCH MCHC RDW Plt Count MPV Neutrophils % Lymphocytes % Monocytes % Eosinophils % Basophils % PT with INR 14.70 H INR 1.30 H Sodium 137 Potassium 3.9 Chloride 104 Carbon Dioxide 28 Anion Gap 5 L BUN 8 Creatinine 1.0 Creat Clearance w eGFR > 60 Random Glucose 90 Calcium 8.2 L Total Bilirubin 0.3 D AST 25 ALT 30 Alkaline Phosphatase 69 Total Protein 7.4 Albumin 3.6 Urine Color Urine Appearance Urine pH Ur Specific [place] Urine Protein Urine Glucose (UA) Urine Ketones Urine Blood Urine Nitrite Urine Bilirubin Urine Urobilinogen Ur Leukocyte Esterase Urine WBC (Auto) Urine RBC (Auto) Ur Epithelial Cells Urine Bacteria Urine Mucus Active Medications Generic Name Dose Route Start Last Admin Trade Name Freq PRN Reason Stop Dose Admin Acetaminophen 650 mg 04/03/17 08:10 Tylenol - PO Q6H PRN FEVER Enoxaparin Sodium 100 mg/ 140 mg 04/02/17 10:00 04/04/17 09:02 Enoxaparin Sodium 40 mg SQ 140 mg BID DARON Administration Lorazepam 0.5 mg 04/03/17 14:36 04/03/17 20:59 Ativan - PO 0.5 mg BID PRN Administration ANXIETY Nicotine 21 mg 04/02/17 14:00 04/04/17 09:02 Nicoderm Patch - TD 21 mg DAILY DARON Administration Ranitidine HCl 150 mg 04/03/17 10:00 04/04/17 09:02 Zantac - PO 150 mg DAILY DARON Administration Tramadol HCl 50 mg 04/03/17 08:09 04/04/17 10:07 Ultram - PO 50 mg Q8H PRN Administration PAIN LEVEL 7 - 10 Warfarin Sodium 7.5 mg 04/02/17 18:00 04/03/17 17:25 Coumadin - PO 7.5 mg DAILY@1800 DARON Administration ASSESSMENT/PLAN: Patient is a 31 year old female with a significant past medical history of DVT ( on Xarelto) and morbid obesity. She presents to the ED on 04/02/2017 with complaints of right lower extremity pain and swelling. Patient reports that her right leg symptoms have been increasing in the past few days. She reports compliance with her Xarelto that she takes daily at 10.a.m. Patient denies any trauma to the site, is not on control pills but is currently a pack a day smoker. Patient reports that she does not have a family history of DVT or PE. She reports that about 1 year ago, she fell going down the stairs when her right leg gave out. She developed a hematoma of the right leg after the fall. After that incident, she developed pain and swelling of that leg and was told she had a DVT and was put on Xarelto by her cash applications associate. She states she was compliant with her Xarelto 20mg daily and took it daily at 10a.m. She reports that her right leg remains swollen and painful prompting her ED visit. On admission, patient refused initiation of a heparin drip, but is agreeable to Lovenox injections. She understands that we will be bridging her to Coumadin. I discussed the importance of smoking cessation, she denies control use, denies recent travel, denies any trauma. She does not report any family history of DVT/PE or any other hematological conditions. Imaging: Vascular study, right leg acute DVT extending from the right mid superficial femoral vein to the popliteal vein. Hematology: Right Leg DVT, appears to be unprovoked Stop Xarelto, on Lovenox weight based @ 140mg BID with a bridge to Coumadin with a goal inr between 2 and 3 Vascular study shows acute right leg DVT Has had hypercoag study with her private cash applications associate Hematology following Vascular consult Patient exploring possible surgical options Right leg pain not controlled with Tylenol 650mg, start Ultram INR subtherapeutic, goal INR (2-3) Cardiology: Hypertension BPs trending up, monitor Not on any home medications Given Lisinopril 2.5mg this a.m. EKG shows sinus arrythmia with PVCs, holter monitor ordered Will d/c Lisinopril and start on Toprol XL as per cardiology recommendations Echo ordered Psyche: Current smoker, risk factor for development of DVT Smoking cessation discussed, pt willing to quit On Nicotine patch Morbid obesity Risk factor for DVT dietary consult ordered for help with healthy eating and coumadin teaching F.E.N. Fluids: PO adequate, monitor electrolytes, regular diet Prophylaxis: On Lovenox to coumadin bridge, zantac Visit type - Emergency Visit Emergency Visit: Yes ED Registration Date: 04/04/17 Care time: The patient presented to the Emergency Department on the above date and was hospitalized for further evaluation of their emergent condition. - New Patient This patient is new to me today: No - Critical Care Critical Care patient: No - Discharge Referral Referred to [facility] Med P.C.: No
[2017-04-04 14:11] LABS: DRVVT - 38.9 sec (0.0-47.0)
--- NOTE | 2017-04-04 15:32 | PN ---
Progress Note (short form) - Note Progress Note: Vascular Surgery Right lower ext dvt. Pt dx with RLE DVT 6 months ago. Was placed on xaralto. Now has acute DVT in same leg. Pt on lovenox, bridging to coumadin. INR is 1.30 Cont AC. Possible history of lupus anticoagulant. Pt probably needs life long AC. No need for filter. Hypercoaguble workup. Cristo Gonzalez DO
[2017-04-04 16:32] LABS: INR 1.4 (0.82-1.09); PROTHROMBIN TIME (PATIENT) 15.8 SEC (9.98-11.88)
[2017-04-04] MEDS: WARFARIN NA 7.5 MG TABLET (FP) PO SCH (17:19)
--- NOTE | 2017-04-04 19:57 | PN ---
Progress Note (short form) - Note Progress Note: Patient seen and examined Feels better Last Vital Signs Temp Pulse Resp BP Pulse Ox 97.8 F 57 L 20 140/64 99 04/04/17 18:00 04/04/17 18:00 04/04/17 18:00 04/04/17 18:00 04/04/17 14:00 Cor: RSR, No murmurs, No gallops Lungs: Clear to P&A Abd: Soft, Normal bowel sounds, No organomegaly Ext:No significant edema Abnormal Lab Results 04/04/17 04/04/17 04/04/17 06:20 10:45 10:45 PT with INR 14.70 H INR 1.30 H Anion Gap 5 L Calcium 8.2 L Albumin 3.2 L 04/04/17 15:00 PT with INR 15.80 H INR 1.40 H Anion Gap Calcium Albumin Home Medication List Medication Instructions Recorded Confirmed Type NK [No Known Home Medication] 04/27/15 04/02/17 History Active Medications Generic Name Dose Route Start Last Admin Trade Name Freq PRN Reason Stop Dose Admin Acetaminophen 650 mg 04/03/17 08:10 Tylenol - PO Q6H PRN FEVER Enoxaparin Sodium 100 mg/ 140 mg 04/02/17 10:00 04/04/17 21:17 Enoxaparin Sodium 40 mg SQ 140 mg BID DARON Administration Lorazepam 0.5 mg 04/03/17 14:36 04/03/17 20:59 Ativan - PO 0.5 mg BID PRN Administration ANXIETY Metoprolol Succinate 12.5 mg 04/05/17 10:00 Toprol Xl - PO DAILY DARON Nicotine 21 mg 04/02/17 14:00 04/04/17 09:02 Nicoderm Patch - TD 21 mg DAILY DARON Administration Ranitidine HCl 150 mg 04/03/17 10:00 04/04/17 09:02 Zantac - PO 150 mg DAILY DARON Administration Tramadol HCl 50 mg 04/03/17 08:09 04/04/17 10:07 Ultram - PO 50 mg Q8H PRN Administration PAIN LEVEL 7 - 10 Warfarin Sodium 7.5 mg 04/02/17 18:00 04/04/17 17:19 Coumadin - PO 7.5 mg DAILY@1800 DARON Administration A/P 31 y/o patient with ACUTE DVT ( second episode) Rt LE failed Xeralto --? due to morbid obesity lovenox to coumadin bridge discussed with patient --need to f/u with primary interactive video technician closely regarding INR checks/retesting of LAC/age appropriate malignancy screening IF coumadin titration is a hassle or fails coumadin will need lovenox discussed with vascular team
[2017-04-04] MEDS: LORazepam 0.5 MG TABLET PO PRN (23:06)
[2017-04-05 08:15] LABS: BASO % 0.4 % (0-2.0); EOS % 1.1 % (0-4.5); HEMOGLOBIN 13.1 GM/dL (10.7-15.3); LYMPH % 30.7 % (8-40); MCH 26.7 pg (25.7-33.7); MEAN CELL VOLUME 83.4 fl (80-96); MEAN PLT VOLUME 8.6 fl (7.5-11.1); MONO % 7.1 % (3.8-10.2); NEUT % 60.7 % (42.8-82.8); PLATELET COUNT 292 K/MM3 (134-434); RBC 4.92 M/mm3 (3.60-5.2); RDW 13.7 % (11.6-15.6); WHITE BLOOD COUNT 7.6 K/mm3 (4.0-10.0)
[2017-04-05 08:40] LABS: ALBUMIN 3.5 g/dl (3.4-5.0); ALK PHOS 66 U/L (45-117); ANION GAP 7 (8-16); BILIRUBIN,TOTAL 0.3 mg/dL (0.2-1.0); BLOOD UREA NITROGEN 10 mg/dL (7-18); CALCIUM 8.3 mg/dL (8.5-10.1); CHLORIDE 103 mmol/L (98-107); CO2 28 mmol/L (21-32); GLUCOSE,RANDOM 82 mg/dL (74-106); POTASSIUM 4.1 mmol/L (3.5-5.1); SGOT/AST 59 U/L (15-37); SGPT/ALT 61 U/L (12-78); SODIUM 138 mmol/L (136-145); TOT PROT 7.2 g/dl (6.4-8.2)
[2017-04-05 09:15] LABS: INR 1.53 (0.82-1.09); PROTHROMBIN TIME (PATIENT) 17.3 SEC (9.98-11.88)
--- NOTE | 2017-04-05 09:25 | PN ---
Physical Exam: SUBJECTIVE: Patient seen and examined OBJECTIVE: Dr. Dangelo is patient's private latent print examiner, spoke to him regarding patient status and todays INR lab value Patient to go for an INR check Appointment made for follow up on Thr @ 10am , then his office will make a follow up clinic visit the following Tuesday. Patient does not have a PCP, new PCP: Azul Jimenes MD for follow up. Appointment made for: April 18 @ 3:30 Vital Signs Period Temp Pulse Resp BP Sys/[place] Pulse Ox Last 24 Hr 97.0 F-98.1 F 55-71 18-20 130-143/62-98 99-99 GENERAL: The patient is awake, alert, and fully oriented, in no acute distress. HEAD: Normal with no signs of trauma. EYES: PERRL, extraocular movements intact, sclera anicteric, conjunctiva clear. No ptosis. ENT: Ears normal, nares patent, oropharynx clear without exudates, moist mucous membranes. NECK: Trachea midline, full range of motion, supple. LUNGS: Breath sounds equal, clear to auscultation bilaterally, no wheezes, no crackles, no accessory muscle use. HEART: Regular rate and rhythm, EKG shows sinus arrythmias with PVCs, to be further evaluated with a holter monitor ABDOMEN: Soft, nontender, nondistended, normoactive bowel sounds, no guarding, no rebound, no hepatosplenomegaly, no masses. EXTREMITIES: Right leg painful to touch, calf tenderness NEUROLOGICAL: Normal speech, gait not observed. PSYCH: Normal mood, normal affect. SKIN: Warm, dry, normal turgor, no rashes or lesions noted Laboratory Results - last 24 hr 04/02/17 04/04/17 04/04/17 14:00 10:45 10:45 WBC 9.2 RBC 4.98 Hgb 13.2 Hct 41.3 MCV 82.9 MCH 26.6 MCHC 32.1 RDW 13.7 Plt Count 301 MPV 7.7 Neutrophils % 74.6 Lymphocytes % 19.8 D Monocytes % 4.5 Eosinophils % 0.5 Basophils % 0.6 PT with INR 14.70 H INR 1.30 H LA PTT Baseline 43.6 dRVVT Confirm Interp 38.9 Sodium Potassium Chloride Carbon Dioxide Anion Gap BUN Creatinine Creat Clearance w eGFR Random Glucose Calcium Total Bilirubin AST ALT Alkaline Phosphatase Total Protein Albumin TSH Urine HCG, Qual 04/04/17 04/04/17 04/04/17 10:45 12:30 15:00 WBC RBC Hgb Hct MCV MCH MCHC RDW Plt Count MPV Neutrophils % Lymphocytes % Monocytes % Eosinophils % Basophils % PT with INR 15.80 H INR 1.40 H LA PTT Baseline dRVVT Confirm Interp Sodium 137 Potassium 3.9 Chloride 104 Carbon Dioxide 28 Anion Gap 5 L BUN 8 Creatinine 1.0 Creat Clearance w eGFR > 60 Random Glucose 90 Calcium 8.2 L Total Bilirubin 0.3 D AST 25 ALT 30 Alkaline Phosphatase 69 Total Protein 7.4 Albumin 3.6 TSH Urine HCG, Qual Negative 04/05/17 04/05/17 04/05/17 06:30 06:30 08:40 WBC 7.6 RBC 4.92 Hgb 13.1 Hct 41.0 MCV 83.4 MCH 26.7 MCHC 32.0 RDW 13.7 Plt Count 292 MPV 8.6 D Neutrophils % 60.7 Lymphocytes % 30.7 D Monocytes % 7.1 Eosinophils % 1.1 D Basophils % 0.4 PT with INR 17.30 H INR 1.53 H LA PTT Baseline dRVVT Confirm Interp Sodium 138 Potassium 4.1 Chloride 103 Carbon Dioxide 28 Anion Gap 7 L BUN 10 Creatinine 1.0 Creat Clearance w eGFR > 60 Random Glucose 82 Calcium 8.3 L Total Bilirubin 0.3 AST 59 H ALT 61 Alkaline Phosphatase 66 Total Protein 7.2 Albumin 3.5 TSH 0.52 Urine HCG, Qual Active Medications Generic Name Dose Route Start Last Admin Trade Name Freq PRN Reason Stop Dose Admin Acetaminophen 650 mg 04/03/17 08:10 Tylenol - PO Q6H PRN FEVER Enoxaparin Sodium 100 mg/ 140 mg 04/02/17 10:00 04/04/17 21:17 Enoxaparin Sodium 40 mg SQ 140 mg BID DARON Administration Lorazepam 0.5 mg 04/03/17 14:36 04/04/17 23:06 Ativan - PO 0.5 mg BID PRN Administration ANXIETY Metoprolol Succinate 12.5 mg 04/05/17 10:00 Toprol Xl - PO DAILY DARON Nicotine 21 mg 04/02/17 14:00 04/04/17 09:02 Nicoderm Patch - TD 21 mg DAILY [facility] Administration Ranitidine HCl 150 mg 04/03/17 10:00 04/04/17 09:02 Zantac - PO 150 mg DAILY [facility] Administration Tramadol HCl 50 mg 04/03/17 08:09 04/04/17 10:07 Ultram - PO 50 mg Q8H PRN Administration PAIN LEVEL 7 - 10 Warfarin Sodium 7.5 mg 04/02/17 18:00 04/04/17 17:19 Coumadin - PO 7.5 mg DAILY@1800 D[facility]ON Administration ASSESSMENT/PLAN: Patient is a 31 year old female with a significant past medical history of DVT ( on Xarelto) and morbid obesity. She presents to the ED on 04/02/2017 with complaints of right lower extremity pain and swelling. Patient reports that her right leg symptoms have been increasing in the past few days. She reports compliance with her Xarelto that she takes daily at 10.a.m. Patient denies any trauma to the site, is not on control pills but is currently a pack a day smoker. Patient reports that she does not have a family history of DVT or PE. She reports that about 1 year ago, she fell going down the stairs when her right leg gave out. She developed a hematoma of the right leg after the fall. After that incident, she developed pain and swelling of that leg and was told she had a DVT and was put on Xarelto by her latent print examiner. She states she was compliant with her Xarelto 20mg daily and took it daily at 10a.m. She reports that her right leg remains swollen and painful prompting her ED visit. On admission, patient refused initiation of a heparin drip, but is agreeable to Lovenox injections. She understands that we will be bridging her to Coumadin. I discussed the importance of smoking cessation, she denies control use, denies recent travel, denies any trauma. She does not report any family history of DVT/PE or any other hematological conditions. Imaging: Vascular study, right leg acute DVT extending from the right mid superficial femoral vein to the popliteal vein. Hematology: Right Leg DVT, appears to be unprovoked Stop Xarelto, on Lovenox weight based @ 140mg BID with a bridge to Coumadin with a goal inr between 2 and 3 Vascular study shows acute new right leg DVT Has had hypercoag study with her private latent print examiner Hematology following Vascular consult Patient exploring possible surgical options, saw vascular surgery and discussed Right leg pain not controlled with Tylenol 650mg, start Ultram INR subtherapeutic, goal INR (2-3) Pt sees Dr. Dangelo, has outpatient appt after d/c Cardiology: Hypertension BPs trending up, monitor Not on any home medications EKG shows sinus arrythmia with PVCs, holter monitor ordered and discontinued today On Toprol XL as per cardiology recommendations Echo ordered and reviewed Outpatient cardiology follow up with Dr. Knox/Dr. Falk. Psyche: Current smoker, risk factor for development of DVT Smoking cessation discussed, pt willing to quit On Nicotine patch Morbid obesity Risk factor for DVT dietary consult ordered for help with healthy eating and coumadin teaching F.E.N. Fluids: PO adequate, monitor electrolytes, regular diet Prophylaxis: On Lovenox to coumadin bridge, zantac Visit type - Emergency Visit Emergency Visit: Yes ED Registration Date: 04/04/17 Care time: The patient presented to the Emergency Department on the above date and was hospitalized for further evaluation of their emergent condition. - New Patient This patient is new to me today: No - Critical Care Critical Care patient: No - Discharge Referral Referred to [facility] Med [facility] No
[2017-04-05] MEDS ORDERED: ENOXAPARIN NA (PORCINE) 100 MG/1 ML DISP.SYRIN SQ ONE ×2 (10:19→21:18)
[2017-04-05] MEDS ORDERED: ENOXAPARIN NA (PORCINE) 40 MG/0.4 ML DISP.SYRIN SQ ONE ×2 (10:19→21:18)
[2017-04-05] MEDS: metoPROLOL SUCCINATE 25 MG TAB.SR.24H (FP) PO SCH (10:21)
[2017-04-05] MEDS: ENOXAPARIN 100 MG, ENOXAPARIN 40 MG SQ SCH ×2 (10:21→21:32)
[2017-04-05] MEDS: RANITIDINE HCL 150 MG TABLET (FP) PO SCH (10:22)
[2017-04-05] MEDS: NICOTINE 21 MG/24 HOURS TOPICAL PATCH TD SCH (10:22)
--- NOTE | 2017-04-05 10:39 | PN ---
Progress Note, Physician Chief Complaint: Events noted Not in distress History of Present Illness: Patient was seen and examined. Awake and alert. Chart was reviewed Denies chest pain, SOB or palpitations - Current Medication List Current Medications: Active Medications Acetaminophen (Tylenol -) 650 mg PO Q6H PRN PRN Reason: FEVER Enoxaparin Sodium 100 mg/ (Enoxaparin Sodium 40 mg) 140 mg SQ BID [facility] Last Admin: 04/05/17 10:21 Dose: 140 mg Lorazepam (Ativan -) 0.5 mg PO BID PRN PRN Reason: ANXIETY Last Admin: 04/04/17 23:06 Dose: 0.5 mg Metoprolol Succinate (Toprol Xl -) 12.5 mg PO DAILY [facility] Last Admin: 04/05/17 10:21 Dose: 12.5 mg Nicotine (Nicoderm Patch -) 21 mg TD DAILY [facility] Last Admin: 04/05/17 10:22 Dose: 21 mg Ranitidine HCl (Zantac -) 150 mg PO DAILY [facility] Last Admin: 04/05/17 10:22 Dose: 150 mg Tramadol HCl (Ultram -) 50 mg PO Q8H PRN PRN Reason: PAIN LEVEL 7 - 10 Last Admin: 04/04/17 10:07 Dose: 50 mg Warfarin Sodium (Coumadin -) 10 mg PO DAILY@1800 [facility] - Objective Vital Signs: Vital Signs Temperature 98.1 F 04/05/17 07:45 Pulse Rate 55 L 04/05/17 07:45 Respiratory Rate 18 04/05/17 07:45 Blood Pressure 141/74 04/05/17 07:45 O2 Sat by Pulse Oximetry (%) 99 04/04/17 22:00 Neck: Yes: Supple Cardiovascular: Yes: Regular Rate and Rhythm Respiratory: Yes: CTA Bilaterally Gastrointestinal: Yes: Normal Bowel Sounds, Soft, Abdomen, Obese. No: Tenderness Edema: Yes Edema: RLE: 1+ Labs: CBC, BMP 04/05/17 06:30 04/05/17 06:30 INR, PTT INR 1.53 (0.82-1.09) H 04/05/17 08:40 Problem List - Problems (1) DVT (deep venous thrombosis) Code(s): I82.409 - ACUTE EMBOLISM AND THOMBOS UNSP DEEP VN UNSP LOWER EXTREMITY Qualifiers: DVT location: lower extremity Affected thrombotic vein of extremity: popliteal Chronicity: unspecified Laterality: right Qualified Code(s): I82.431 - Acute embolism and thrombosis of right popliteal vein (2) Premature ventricular complex Code(s): I49.3 - VENTRICULAR PREMATURE DEPOLARIZATION Assessment/Plan 1. Acute deep vein thrombosis (second episode) Rt LE unprovoked 2. PVC PLAN: 1. Continue Coumadin and monitor INR 2-3 2. Vascular input noted. Further hematologic work up for hypercoagulable state 3. Holter monitor to evaluate arrhythmia burden 4. Transthoracic echocardiography reviewed with normal left ventricular systolic function 5. Continue Toprol XL as tolerated Further plans are to follow José Falk MD
--- NOTE | 2017-04-05 10:47 | PN ---
Progress Note (short form) - Note Progress Note: Pt seen and examined. chart reviewed walking around , feels better INR is 1.5 seen by vascular. Constitutional: Yes: Well Nourished, No Distress, Anxious Eyes: Yes: Conjunctiva Clear HENT: Yes: Atraumatic, Normocephalic Neck: Yes: Supple, Trachea Midline Cardiovascular: Yes: Regular Rate and Rhythm Respiratory: Yes: Regular, CTA Bilaterally Gastrointestinal: Yes: Normal Bowel Sounds, Soft, Abdomen, Obese Extremities: (rle >> lle) Edema: Yes Neurological: Yes: Alert, Oriented Last Vital Signs Temp Pulse Resp BP Pulse Ox 97.6 F 65 18 141/84 100 04/03/17 10:07 04/03/17 10:07 04/03/17 10:07 04/03/17 10:07 04/02/17 01:37 CBC, BMP 04/02/17 02:46 04/03/17 10:45 Current Medications Generic Name Dose Route Start Last Admin Trade Name Freq PRN Reason Stop Dose Admin Acetaminophen 650 mg 04/03/17 08:10 Tylenol - PO Q6H PRN FEVER Enoxaparin Sodium 100 mg/ 140 mg 04/02/17 10:00 04/03/17 09:12 Enoxaparin Sodium 40 mg SQ 140 mg BID [facility]AR[facility] Administration Lorazepam 0.5 mg 04/03/17 14:36 Ativan - PO BID PRN ANXIETY Nicotine 21 mg 04/02/17 14:00 04/03/17 09:11 Nicoderm Patch - TD 21 mg DAILY DARON Administration Ranitidine HCl 150 mg 04/03/17 10:00 04/03/17 09:12 Zantac - PO 150 mg DAILY [facility] Administration Tramadol HCl 50 mg 04/03/17 08:09 04/03/17 08:47 Ultram - PO 50 mg Q8H PRN Administration PAIN LEVEL 7 - 10 Warfarin Sodium 7.5 mg 04/02/17 18:00 04/02/17 18:34 Coumadin - PO 7.5 mg DAILY@1800 D[facility] Administration 31 y/o patient with ACUTE DVT ( second episode) Rt LE failed Xeralto --? due to morbid obesity/active smoking. lovenox to coumadin bridge f/u with primary wet silk hanger closely regarding INR checks/retesting of LAC/age appropriate malignancy screening if coumadin titration is not being practical, will need lovenox. Problem List - Problems (1) DVT (deep venous thrombosis) Code(s): I82.409 - ACUTE EMBOLISM AND THOMBOS UNSP DEEP VN UNSP LOWER EXTREMITY Qualifiers: DVT location: lower extremity Affected thrombotic vein of extremity: popliteal Chronicity: unspecified Laterality: right Qualified Code(s): I82.431 - Acute embolism and thrombosis of right popliteal vein
[2017-04-05] MEDS: traMADol HCL 50 MG TABLET PO PRN ×2 (14:09→21:33)
--- NOTE | 2017-04-05 15:14 | HOL ---
Hook-up date: 2017-04-04 12:08:00 Duration: 22:22:00 Test Indications: ASSESS FREQUENCY OF PVC Medications: 82831 QRS complexes 1380 Ventricular ectopics which represent 1 % of total QRS comp. 1 Supraventricular ectopics which represent <1 % of total QRS comp. * Paced QRS complexs which represent % of total QRS comp. 15 % of Time Classified as Noise VENTRICULAR ECTOPY 1376 Isolated 32 Bigeminal Cycles 2 Couplets 0 Runs 0 Beats in Runs * Beats LONGEST at * BPM at :: -- * Beats FASTEST at * BPM at :: -- SUPRAVENTRICULAR ECTOPY 1 Isolated 0 Couplets 0 Runs 0 Beats in Runs * Beats LONGEST at * BPM at :: -- * Beats FASTEST at * BPM at :: -- HEART RATES 47 MIN at 05:30:33 2017-04-05 68 AVG 117 MAX at 15:02:28 2017-04-04 LONGEST RR 1.368 secs at 22:21:07 2017-04-04 SCANNED BY ELIJAH COWAN ON 04/05/17 Predominately NSR Occasional VPC's Rare ventricular couplets A short run of ventricular bigemy was noted Confirmed by MD Ashu, Zion ([id number]) on 04/05/2017 3:13:51 PM Referred By[facility] Overread By: Zion Wakefield MD
[2017-04-05 16:47] LABS: INR 1.48 (0.82-1.09); PROTHROMBIN TIME (PATIENT) 16.7 SEC (9.98-11.88)
[2017-04-05] MEDS ORDERED: PT OWN MED DRAWER 7, Y5N ONE (18:14)
[2017-04-05] MEDS: WARFARIN NA 10 MG TABLET (FP) PO SCH (18:17)
[2017-04-06] MEDS ORDERED: ENOXAPARIN NA (PORCINE) 40 MG/0.4 ML DISP.SYRIN SQ ONE ×2 (08:57→20:35)
[2017-04-06] MEDS ORDERED: ENOXAPARIN NA (PORCINE) 100 MG/1 ML DISP.SYRIN SQ ONE ×2 (08:57→20:36)
[2017-04-06] MEDS: metoPROLOL SUCCINATE 25 MG TAB.SR.24H (FP) PO SCH (09:45)
[2017-04-06] MEDS: ENOXAPARIN 100 MG, ENOXAPARIN 40 MG SQ SCH ×2 (09:45→21:42)
[2017-04-06] MEDS: NICOTINE 21 MG/24 HOURS TOPICAL PATCH TD SCH (09:45)
[2017-04-06] MEDS: RANITIDINE HCL 150 MG TABLET (FP) PO SCH (09:46)
[2017-04-06 09:57] LABS: INR 1.68 (0.82-1.09)
[2017-04-06] MEDS: traMADol HCL 50 MG TABLET PO PRN ×2 (10:02→20:53)
--- NOTE | 2017-04-06 11:30 | PN ---
Physical Exam: SUBJECTIVE: Patient seen and examined. she is ambulating, she still has pain to her DVT site but its improved since admission OBJECTIVE: Vital Signs Period Temp Pulse Resp BP Sys/[place] Pulse Ox Last 24 Hr 97.9 F-98.4 F 61-82 18-20 124-149/70-96 100 PE Neuro: alert, awake, cn 2-12intact Pulm: CTAB CV: s1 s2 rrr no rmg Abd: obese, soft, nt nd + bs Ext: RLE lateral thigh tender to touch, not warm, no erythema, swelling improved Laboratory Results - last 24 hr 04/03/17 04/05/17 04/06/17 18:00 15:31 09:15 PT with INR 16.70 H 19.00 H INR 1.48 H 1.68 H Heparin Anti-Xa Level 0.9 Active Medications Generic Name Dose Route Start Last Admin Trade Name Freq PRN Reason Stop Dose Admin Acetaminophen 650 mg 04/03/17 08:10 Tylenol - PO Q6H PRN FEVER Enoxaparin Sodium 100 mg/ 140 mg 04/02/17 10:00 04/06/17 09:45 Enoxaparin Sodium 40 mg SQ 140 mg BID DARON Administration Lorazepam 0.5 mg 04/03/17 14:36 04/04/17 23:06 Ativan - PO 0.5 mg BID PRN Administration ANXIETY Metoprolol Succinate 12.5 mg 04/05/17 10:00 04/06/17 09:45 Toprol Xl - PO 12.5 mg DAILY [facility] Administration Nicotine 21 mg 04/02/17 14:00 04/06/17 09:45 Nicoderm Patch - TD 21 mg DAILY [facility] Administration Ranitidine HCl 150 mg 04/03/17 10:00 04/06/17 09:46 Zantac - PO 150 mg DAILY [facility] Administration Tramadol HCl 50 mg 04/03/17 08:09 04/06/17 10:02 Ultram - PO 50 mg Q8H PRN Administration PAIN LEVEL 7 - 10 Warfarin Sodium 10 mg 04/05/17 09:25 04/05/17 18:17 Coumadin - PO 10 mg DAILY@1800 D[facility] Administration Imaging: - Vascular study, right leg acute DVT extending from the right mid superficial femoral vein to the popliteal vein. Assessment: 31 year old female with pmhx of DVT 2/2 traumatic fall (on Xarelto) , active smoker, morbid obesity presented to the ED with RLE pain and swelling. Plan: 1. RLE DVT - Unprovoked, failed xarelto - On lovenox 140mg BID with coumadin gtt - Coumadin 10mg - Daily INR - Outpt hydraulic rockbreaker operator Dr. Chakraborty handling maliginacy screen and hypercoaguable work up; today pt refused IVC filter 2. HTN - Toprolol xl 12.5mg daily - Further work up per cardiology 3. Active smoker - Nicotine patch Dispo: - Pending INR Visit type - Emergency Visit Emergency Visit: Yes ED Registration Date: 04/04/17 Care time: The patient presented to the Emergency Department on the above date and was hospitalized for further evaluation of their emergent condition. - New Patient This patient is new to me today: Yes Date on this admission: 04/06/17 - Critical Care Critical Care patient: No
--- NOTE | 2017-04-06 17:24 | PN ---
Progress Note, Physician History of Present Illness: RLE swelling improving. Sees hematology. - Current Medication List Current Medications: Active Medications Acetaminophen (Tylenol -) 650 mg PO Q6H PRN PRN Reason: FEVER Enoxaparin Sodium 100 mg/ (Enoxaparin Sodium 40 mg) 140 mg SQ BID [facility] Last Admin: 04/06/17 09:45 Dose: 140 mg Lorazepam (Ativan -) 0.5 mg PO BID PRN PRN Reason: ANXIETY Last Admin: 04/04/17 23:06 Dose: 0.5 mg Metoprolol Succinate (Toprol Xl -) 12.5 mg PO DAILY [facility] Last Admin: 04/06/17 09:45 Dose: 12.5 mg Nicotine (Nicoderm Patch -) 21 mg TD DAILY [facility] Last Admin: 04/06/17 09:45 Dose: 21 mg Tramadol HCl (Ultram -) 50 mg PO Q8H PRN PRN Reason: PAIN LEVEL 7 - 10 Last Admin: 04/06/17 10:02 Dose: 50 mg Warfarin Sodium (Coumadin -) 10 mg PO DAILY@1800 [facility] Last Admin: 04/05/17 18:17 Dose: 10 mg - Objective Vital Signs: Vital Signs Temperature 98.6 F 04/06/17 14:07 Pulse Rate 69 04/06/17 14:07 Respiratory Rate 18 04/06/17 14:07 Blood Pressure 146/90 04/06/17 14:07 O2 Sat by Pulse Oximetry (%) 99 04/06/17 09:00 Constitutional: Yes: No Distress, Calm Neck: Yes: Supple Cardiovascular: Yes: Regular Rate and Rhythm Respiratory: Yes: Regular, Diminished Gastrointestinal: Yes: Normal Bowel Sounds, Soft, Abdomen, Obese Edema: Yes Edema: RLE: 1+ Labs: CBC, BMP 04/05/17 06:30 04/05/17 06:30 INR, PTT INR 1.68 (0.82-1.09) H 04/06/17 09:15 Problem List - Problems (1) Premature ventricular complex Code(s): I49.3 - VENTRICULAR PREMATURE DEPOLARIZATION (2) DVT (deep venous thrombosis) Code(s): I82.409 - ACUTE EMBOLISM AND THOMBOS UNSP DEEP VN UNSP LOWER EXTREMITY Qualifiers: DVT location: lower extremity Affected thrombotic vein of extremity: popliteal Chronicity: unspecified Laterality: right Qualified Code(s): I82.431 - Acute embolism and thrombosis of right popliteal vein Assessment/Plan 04/04/2017 NSR occ PVC 1% total QRS 04/04/2017 Transthoracic echocardiography reviewed with normal left ventricular systolic function, mild MR, mild TR 1. Acute deep vein thrombosis (second episode) Rt LE unprovoked 2. PVC 3. HTN PLAN: 1. Continue Coumadin for target INR 2-3 2. F/u hypercoagulable work-up 3. Continue Toprol XL, Lovenox->coumadin per INR
[2017-04-06] MEDS: WARFARIN NA 10 MG TABLET (FP) PO SCH (17:42)
[2017-04-06] MEDS ORDERED: oxyCODONE HCL 5 MG TABLET PO ONE (22:17)
[2017-04-07] MEDS ORDERED: ENOXAPARIN NA (PORCINE) 100 MG/1 ML DISP.SYRIN SQ ONE (08:38)
[2017-04-07] MEDS ORDERED: ENOXAPARIN NA (PORCINE) 40 MG/0.4 ML DISP.SYRIN SQ ONE (08:38)
[2017-04-07] MEDS: ENOXAPARIN 100 MG, ENOXAPARIN 40 MG SQ SCH (09:07)
[2017-04-07] MEDS: NICOTINE 21 MG/24 HOURS TOPICAL PATCH TD SCH (09:08)
[2017-04-07] MEDS: metoPROLOL SUCCINATE 25 MG TAB.SR.24H (FP) PO SCH (09:08)
[2017-04-07 09:15] VITALS: BP 116/74; PULSE 60; TEMP 98.1
--- NOTE | 2017-04-08 08:09 | DS ---
Physical Exam: SUBJECTIVE: Patient seen and examined. Able to ambulate, pain tolerable, eager to go home. OBJECTIVE: Vital Signs Period Temp Pulse Resp BP Sys/[place] Pulse Ox Last 24 Hr 98.1 F 60 20 116/74 99 PE Neuro: alert, awake, cn 2-12intact Pulm: CTAB CV: s1 s2 rrr no rmg Abd: obese, soft, nt nd + bs Ext: RLE lateral thigh tender to touch, not warm, no erythema, swelling improved HOSPITAL COURSE: Date of Admission:04/04/17 Date of Discharge: 04/07/17 Minutes to complete discharge: 37 Discharge Summary Reason For Visit: DVT Hospital Course: Initial Hospital Course: Briefly, this 31 year old female with PMH of DVT (6 mo ago, on Xarelto) and morbid obesity, presented with Right LE swelling and pain. Symptoms have been increasing over the past few weeks, but significantly worsened yesterday prompting pt to come to ER. Pt reported strict compliance with Xarelto, denies trauma to the site, denies OCP use. Imaging: - Vascular study, right leg acute DVT extending from the right mid superficial femoral vein to the popliteal vein. Subsequent Hospital Course/Progress Note/DC summary: Assessment: 31 year old female with pmhx of DVT 2/2 traumatic fall (on Xarelto) , active smoker, morbid obesity presented to the ED with RLE pain and swelling. Plan: 1. RLE DVT - Unprovoked, failed xarelto - On lovenox 140mg BID with coumadin gtt - Coumadin 10mg - Will send pt home with lovenox 140mg BID, confirmed availability at pharmacy, pt able to inject herself - Will follow INR at [facility] 3/2 and 3 and stop injections if levels between 2-3 - To follow up as w outpt right of way appraiser Dr. Chakraborty handling maliginacy screen and hypercoaguable work up, pt aware to make appt for next week 2. HTN - Toprolol xl 12.5mg daily 3. PVC - Holter monitor with snr and pvc - 04/04/2017 ECHO normal left ventricular systolic function, mild MR, mild TR Dispo: - Home with above meds and plan - Pt and aware and agree to above plan Condition: Stable - Instructions Diet, Activity, Other Instructions: Please return to the ED for any new, persistent, or worsening symptoms. Follow up with your PCP as stated below Tomorrow follow up at [facility] to get INR checked, if INR not between 2- 3 continue lovenox injection and coumadin again and follow up Tuesday at [facility] for INR check. Lovenox injections 10am 10 pm Take coumadin 10mg @6pm everyday Please see Dr. Dangelo for continued work up and hypercoagulable studies next week, make an appt to see him A new primary care doctor has been assigned to you. She is affiliated with our hospital. Her name is Azul Jimenes MD. Appointment made for: April 18 @ 3:30. On the date of the appointment, please bring in your hospital papers and insurance card. Referrals: Azul Bullard MD [Staff Physician] - Bull Knox MD [Staff Physician] - Disposition: HOME - Home Medications Comprehensive Discharge Medication List: Ambulatory Orders Metoprolol Succinate [Toprol XL -] 12.5 mg PO DAILY #30 tab.sr.24h 04/05/17 Warfarin Na [Coumadin -] 10 mg PO DAILY@1800 #30 tablet 04/05/17 Enoxaparin [Lovenox -] 140 mg SQ BID #6 disp.syrin 04/07/17 This patient is new to me today: No Emergency Visit: Yes ED Registration Date: 04/04/17 Care time: The patient presented to the Emergency Department on the above date and was hospitalized for further evaluation of their emergent condition. Critical Care patient: No - Discharge Referral Referred to [facility] Yes Physician Referral: Azul Bullard MD ([facility])
== END 2017-04-07 10:14 | disposition home or self-care (01) | DRG 197 ==
LOC: JER 01:01 → INTOOBSV 04:41 → JERBED 04:41 → UNDOADMIN 04:55 → J5S 09:02 → OBSVTOIN 04-04 09:00 → J5S 04-05 15:24
PROVIDERS: ADMIT Internal Medicine; ATTEND Nurse Practitioner Acute Care
DX: I82.431 Acute embolism and thrombosis of right popliteal vein (principal); F17.200 Nicotine dependence, unspecified, uncomplicated; D72.828 Other elevated white blood cell count; E66.01 Morbid (severe) obesity due to excess calories; Z68.42 Body mass index [BMI] 45.0-49.9, adult; I10 Essential (primary) hypertension; I49.3 Ventricular premature depolarization; Z79.01 Long term (current) use of anticoagulants
CPT/HCPCS: 36415; 71045-TC-FY; 80053; 80061; 81003; 81015; 83721; 84443; 84703; 85025; 85520; 85610; 85613; 85730; 85732; 93005; 93010; 93225; 93226; 93306-TC; 93970-TC; 99283-25; G0378

== ENCOUNTER 2017-07-24 23:14 | Emergency (ER) | payer OTHER ==
[2017-07-24 23:27] VITALS: BP 141/84; PULSE 96; TEMP 100.6; BMI 51.7
[2017-07-24] MEDS ORDERED: SODIUM CHLORIDE 1,000 ML IV STA (23:35)
[2017-07-24] MEDS ORDERED: METOCLOPRAMIDE HCL INJECTION 10 MG/2 ML VIAL IVPUSH ONE (23:35)
[2017-07-24] MEDS ORDERED: ACETAMINOPHEN 1000 MG/100 ML VIAL (NON FORMULARY) IVPB ONE (23:35)
--- NOTE | 2017-07-24 23:55 | PDOC ---
History of Present Illness - General Chief Complaint: Pain Stated Complaint: HEADACHE/WEAKNESS Time Seen by Provider: 07/24/17 23:25 - History of Present Illness Initial Comments: 07/25/17 00:00 The patient is a 31 year old female with a history of HTN, DVT on coumadin who presents for evaluation of headache. The patient reports a 3 day history of worsening frontal throbbing headache with minimal improvement with tylenol prompting her presentation to the ED for evaluation. She also notes generalized weakness and body aches as well as some nausea, but otherwise denies fevers, chills, SOB, chest pain, vomiting, abdominal pain, numbness, weakness, or changes with urination or bowel movements. Past History - Past Medical History Allergies/Adverse Reactions: Allergies Allergy/AdvReac Type Severity Reaction Status Date / Time No Known Allergies Allergy Verified 07/24/17 23:22 Home Medications: Ambulatory Orders Metoprolol Succinate [Toprol XL -] 12.5 mg PO DAILY #30 tab.sr.24h 04/05/17 Warfarin Na [Coumadin -] 10 mg PO DAILY@1800 #30 tablet 04/05/17 Amox-Tr/K Cl [Augmentin - 875Mg Tablet] 1 tab PO BID #20 tablet 07/25/17 Anemia: No Asthma: No Cancer: No Cardiac Disorders: No CVA: No COPD: No CHF: No DVT: Yes (R popliteal) Dementia: No Diabetes: No GI Disorders: No Disorders: No HTN: Yes Hypercholesterolemia: No Liver Disease: No Seizures: No Thyroid Disease: No Other medical history: Arthritis - Reproductive History (#): 2 Para: 1 Therapeutic (s) & number: No Spontaneous : 0 - Suicide/Smoking/Psychosocial Hx Smoking History: Current every day smoker Have you smoked in the past 12 months: Yes Number of Cigarettes Smoked Daily: 10 Information on smoking cessation initiated: No 'Breaking Loose' booklet given: 04/02/17 Hx Alcohol Use: No Drug/Substance Use Hx: No Substance Use Type: None Hx Substance Use Treatment: No Review of Systems - Review of Systems Comments:: 07/25/17 00:05 Constitutional: Generalized Weakness. No fevers, chills, malaise HEENT: No Rhinorrhea, nasal congestion, visual changes Cardiovascular: No chest pain, syncope, palpitations, lightheadedness Respiratory: No Cough, SOB, Hemoptysis, Gastrointestinal: Nausea, No Abdominal pain, Vomiting, Constipation, Diarrhea, Melena Genitourinary: No Dysuria, Frequency, Urgency, Hesitancy, Hematuria, Flank pain Musculoskeletal: No Myalgia, arthralgia Skin: No rashes, itching, bruising, pallor Neurologic: Headache. No Dizziness, Numbness, Weakness, or Tingling Psychiatric: No Hallucinations. No SI or HI *Physical Exam - Vital Signs Last Vital Signs Temp Pulse Resp BP Pulse Ox 100.6 F H 96 H 20 141/84 100 07/24/17 23:23 07/24/17 23:23 07/24/17 23:23 07/24/17 23:23 07/24/17 23:23 - Physical Exam Comments: 07/25/17 00:06 General Appearance: Nourished. In Mild Apparent Distress HEENT: EOMI, ANITA. No Pharyngeal Erythema, Tonsillar Exudate, Tonsillar Erythema Neck: No Cervical Lymphadenopathy Respiratory/Chest: Lungs Clear, Normal Breath Sounds. No Crackles, Rales, Rhonchi, Wheezing Cardiovascular: Regular Rhythm, Regular Rate. No Murmur, Gallops, Rubs Gastrointestinal/Abdominal: Normal Bowel Sounds, Soft. No Guarding, Rebound, Tenderness Musculoskeletal: No CVA Tenderness Extremity: Normal Capillary Refill Integumentary: Normal Color, Dry, Warm Neurologic: student admissions clerk II-XII NML intact, Fully Oriented, Alert, Normal Mood/Affect, Normal Response, Motor Strength 5/5. ED Treatment Course - LABORATORY CBC & Chemistry Diagram: 07/24/17 23:50 07/24/17 23:50 Medical Decision Making - Medical Decision Making 07/25/17 00:06 The patient is a 31 year old female with a history of HTN, DVT on coumadin who presents for evaluation of headache. Differential includes but is not limited to: Migraine Headache, Intracranial process, Sinusitis, Infectious, Metabolic derangement. Given the patient's history and physical exam, we will obtain a cbc, cmp, coags, serum preg, head Ct to evaluate further for possible etiologies. We will treat in the meantime with iv fluids, iv tylenol, reglan, and benadryl. We will continue to monitor and reassess while here in the ED. 07/25/17 03:52 CBC, cmp, are unremarkable. INR is elevated to 5. Head CT demonstrates some mild sinus disease. It is likely the patient's symptoms are due to sinusitis. The patient's INR is also elevated and will need to be held for 3 days. The patient reports improvement in her symptoms. We are comfortable discharging the patient home on augmentin with close primary care provider follow up for INR recheck. We discussed the results, plan, and strict return precautions as well as the need for INR recheck and the patient voiced understanding and is agreeable with the plan. *DC/Admit/Observation/Transfer Diagnosis at time of Disposition: Sinusitis Qualifiers: Sinusitis location: frontal Chronicity: acute Recurrence: not specified as recurrent Qualified Code(s): J01.10 - Acute frontal sinusitis, unspecified - Discharge Dispostion Disposition: HOME Condition at time of disposition: Stable Decision to Admit order: No - Prescriptions Prescriptions: Amox-Tr/K Cl [Augmentin - 875Mg Tablet] 1 tab PO BID #20 tablet - Referrals Referrals: Azul Bullard MD [Primary Care Provider] - - Patient Instructions Printed Discharge Instructions: DI for Sinusitis, DI for Headache Additional Instructions: Please return to the ER if you experience concerning or worsening symptoms including worsening pain, fevers, or vomiting. Your lab results showed that your INR was elevated here in the ED. You will need to stop your coumadin for 3 days and you MUST call to schedule a follow up appointment with your primary care provider within 1-2 days to discuss your ER visit and further management of your symptoms. Your Head CT was normal, but did show some evidence of sinusitis. We have sent a prescription to your pharmacy for antibiotics that you should take twice a day for 10 days. Augmentin can raise your INR as well and it is EXTREMELY important to have your INR rechecked this week with your primary care provider. - Post Discharge Activity
[2017-07-24] MEDS ORDERED: METOCLOPRAMIDE HCL INJECTION 10 MG/2 ML VIAL ONE (23:56)
--- NOTE | 2017-07-24 23:56 | PDOC ---
Attending Attestation - HPI HPI: 07/25/17 00:16 The patient is a 31 year old female, with a significant past medical history of DVT (on Coumadin) and HTN, who presents to the emergency department via EMS with , 3 days of a worsening frontal headache. She describes her frontal headache as worsening with associated weakness, diffuse body aches, and nausea without emesis. Shes taken Tylenol, with minimal relief. She has never had a prior episode of these symptoms. She denies photophobia or phonophobia. She denies recent fevers, chills, or dizziness. She denies recent vomit, diarrhea or constipation. She denies recent dysuria, frequency, urgency or hematuria. She denies recent chest pain or shortness of breath. Allergies: NKA Past surgical history: None reported. Social history: Smoker (10 cigarettes per day). Denies EtOH use and recreational drug use. Primary Care Physician: Dr. Azul Bullard <Boo Cadet - Last Filed: 07/25/17 00:16> - Resident Resident Name: Zion Casas - ED Attending Attestation I have performed the following: I have examined & evaluated the patient, The case was reviewed & discussed with the resident, I agree w/resident's findings & plan, Exceptions are as noted - Physicial Exam PE: 07/25/17 03:53 ON examination (After medications) Pt is resting comfortably in bed arousable to verbal stimulation mild facial tenderness No nuchal rigidity RRR CTA b/l - Medical Decision Making 07/24/17 23:55 31 yo F presenting with frontal headache x 3 days No prior headaches like this in the past (+) fevers No neurological deficits Vitals significant for Temp 100.6 07/25/17 03:54 Laboratory Tests 07/24/17 07/24/17 07/24/17 23:50 23:50 23:50 WBC 10.3 H D Hgb 12.9 Hct 39.1 Plt Count 348 INR 5.15 H* D BUN 7 Creatinine 1.1 H Serum , Qual 07/24/17 23:50 WBC Hgb Hct Plt Count INR BUN Creatinine Serum , Qual Negative CT head: Mild sinus disease Upon my assessment, pt states her pain slightly improved but was still present Morphine given which has improved her symptoms Will discharge to home on Augmentin Pt told that her INR is elevated Augmentin will potentiate this, therefore, she MUST hold coumadin for the next two days, and follow up in 2 days for repeat INR Return immediately for bleeding, any other concerns or complaints <Ailin Mujica - Last Filed: 07/25/17 03:58> Attestations - Attestations 07/25/17 00:16 Documentation prepared by Boo Cadet, acting as chief medical physicist for Ailin Mujica MD. <Boo Cadet - Last Filed: 07/25/17 00:16>
[2017-07-24 23:59] LABS: BASO % 0.3 % (0-2.0); EOS % 0.1 % (0-4.5); HEMATOCRIT 39.1 % (32.4-45.2); HEMOGLOBIN 12.9 GM/dL (10.7-15.3); MCH 27.3 pg (25.7-33.7); MCHC 33.1 g/dl (32.0-36.0); MEAN CELL VOLUME 82.4 fl (80-96); MEAN PLT VOLUME 8.2 fl (7.5-11.1); MONO % 3.5 % (3.8-10.2); NEUT % 87.1 % (42.8-82.8); PLATELET COUNT 348 K/MM3 (134-434); RBC 4.74 M/mm3 (3.60-5.2); RDW 14.5 % (11.6-15.6); WHITE BLOOD COUNT 10.3 K/mm3 (4.0-10.0)
[2017-07-25 00:13] LABS: PROTHROMBIN TIME (PATIENT) 58.2 SEC (9.7-13.0)
[2017-07-25 00:16] LABS: ACTIVATED PTT 55.9 SECONDS (25.2-36.5)
[2017-07-25 00:19] LABS: INR 5.15 (0.82-1.09)
[2017-07-25 00:25] LABS: ALBUMIN 3.3 g/dl (3.4-5.0); ALK PHOS 78 U/L (45-117); ANION GAP 7 (8-16); BILIRUBIN,TOTAL 0.2 mg/dL (0.2-1.0); BLOOD UREA NITROGEN 7 mg/dL (7-18); CALCIUM 8.2 mg/dL (8.5-10.1); CHLORIDE 104 mmol/L (98-107); CO2 27 mmol/L (21-32); CREATININE 1.1 mg/dL (0.55-1.02); GLUCOSE,RANDOM 98 mg/dL (74-106); POTASSIUM 3.9 mmol/L (3.5-5.1); SGOT/AST 22 U/L (15-37); SGPT/ALT 27 U/L (12-78); SODIUM 138 mmol/L (136-145); TOT PROT 7.2 g/dl (6.4-8.2)
[2017-07-25] MEDS ORDERED: AMOX TR/POT CLAV 875MG/125MG TABLETS (FP) PO ONE (02:01)
[2017-07-25] MEDS ORDERED: morphine CARPU-JECT 4 MG/1 ML DISP.SYRIN IVPUSH ONE (02:01)
[2017-07-25] MEDS ORDERED: AMOX TR/POT CLAV 875MG/125MG TABLETS (FP) ONE (02:20)
[2017-07-25] MEDS ORDERED: morphine SULFATE 4 MG/ML VIAL ONE (02:20)
== END 2017-07-25 03:29 | disposition home or self-care (01) ==
LOC: JER 23:14
PROC: 3E033GC Introduction of Other Therapeutic Substance into Peripheral Vein, Percutaneous Approach (ICD-10-PCS; principal; 2017-07-24)
PROC: 3E033GC Introduction of Other Therapeutic Substance into Peripheral Vein, Percutaneous Approach (ICD-10-PCS; 2017-07-24)
PROC: 3E033NZ Introduction of Analgesics, Hypnotics, Sedatives into Peripheral Vein, Percutaneous Approach (ICD-10-PCS; 2017-07-24)
PROC: 3E033NZ Introduction of Analgesics, Hypnotics, Sedatives into Peripheral Vein, Percutaneous Approach (ICD-10-PCS; 2017-07-24)
DX: J01.10 Acute frontal sinusitis, unspecified (principal); I10 Essential (primary) hypertension; Z86.718 Personal history of other venous thrombosis and embolism; Z79.01 Long term (current) use of anticoagulants; F17.210 Nicotine dependence, cigarettes, uncomplicated
CPT/HCPCS: 36415; 70450-TC; 80053; 84703; 85025; 85610; 85730; 96374; 96375; 99284-25; J0131; J7030

== ENCOUNTER 2020-06-22 17:26 | Emergency (ER) | payer OTHER ==
[2020-06-22 17:33] VITALS: BP 164/80; PULSE 69; TEMP 98.6; BMI 37.5
[2020-06-22] MEDS ORDERED: FAMOTIDINE 20 MG/50 ML IVPB 20 MG/50 ML MG IVPB ONE ×2 (17:42→17:52)
[2020-06-22] MEDS ORDERED: ACETAMINOPHEN 1000 MG/100 ML VIAL (NON FORMULARY) IVPB ONE (17:42)
[2020-06-22] MEDS ORDERED: MAG HYDROX/AL HYDROX/SIMETH 30 ML UNIT-DOSE CUP PO ONE (17:42)
[2020-06-22] MEDS ORDERED: LIDOCAINE VISCOUS 2% ORAL/TOP 20 ML UNIT-DOSE CUP MM ONE (17:42)
[2020-06-22] MEDS ORDERED: SODIUM CHLORIDE 1,000 ML IV STA (17:42)
[2020-06-22] MEDS ORDERED: MAG HYDROX/AL HYDROX/SIMETH 30 ML UNIT-DOSE CUP ONE (17:52)
[2020-06-22] MEDS ORDERED: ACETAMINOPHEN INJECTION 100 ML IVPB ONE (17:52)
[2020-06-22] MEDS ORDERED: LIDOCAINE VISCOUS 2% ORAL/TOP 20 ML UNIT-DOSE CUP ONE (17:52)
[2020-06-22 18:23] LABS: BASO % 0.5 % (0-2.0); EOS % 0.3 % (0-4.5); HEMATOCRIT 42.2 % (32.4-45.2); HEMOGLOBIN 13.8 GM/dL (10.7-15.3); LYMPH % 15.2 % (8-40); MCH 27.1 pg (25.7-33.7); MCHC 32.7 g/dl (32.0-36.0); MEAN CELL VOLUME 82.7 fl (80-96); MEAN PLT VOLUME 8.4 fl (7.5-11.1); MONO % 4.2 % (3.8-10.2); NEUT % 79.8 % (42.8-82.8); PLATELET COUNT 366 K/MM3 (134-434); RDW 15.1 % (11.6-15.6); WHITE BLOOD COUNT 11.5 K/mm3 (4.0-10.0)
[2020-06-22 18:45] LABS: CALCIUM 8.9 mg/dL (8.5-10.1)
[2020-06-22 18:47] LABS: ALBUMIN 3.8 g/dl (3.4-5.0); BLOOD UREA NITROGEN 12.2 mg/dL (7-18)
[2020-06-22] MEDS ORDERED: METOCLOPRAMIDE HCL INJECTION 10 MG/2 ML VIAL IVPB ONE (18:48)
[2020-06-22] MEDS ORDERED: morphine CARPU-JECT 4 MG/1 ML DISP.SYRIN IVPUSH ONE (18:48)
[2020-06-22 18:50] LABS: CREATININE 0.9 mg/dL (0.55-1.3)
[2020-06-22 18:51] LABS: BILIRUBIN,TOTAL 0.4 mg/dL (0.2-1); TOT PROT 7.7 g/dl (6.4-8.2)
[2020-06-22] MEDS ORDERED: METOCLOPRAMIDE HCL INJECTION 10 MG/2 ML VIAL ONE (18:56)
[2020-06-22] MEDS ORDERED: morphine SULFATE 4 MG/ML VIAL ONE (19:02)
[2020-06-22 19:18] LABS: EPI CELLS >36 /uL (0-25.1); HYALINE CASTS 10 /uL (0-3.1); URINE APPEARANCE TURBID; URINE BACTERIA 3811 /uL (0-1359); URINE BILIRUBIN NEGATIVE (NEGATIVE); URINE COLOR RED; URINE GLUCOSE (UA) NEGATIVE (NEGATIVE); URINE KETONE TRACE (NEGATIVE); URINE LEUK ESTERASE 1+ (NEGATIVE); URINE NITRITE NEGATIVE (NEGATIVE); URINE PROTEIN 3+ (NEGATIVE); URINE RBC 46 /uL (0-23.9); URINE WBC 259 /uL (0-25.8)
[2020-06-22] MEDS ORDERED: ONDANSETRON 4 MG/2 ML VIAL IVPUSH ONE (20:04)
[2020-06-22] MEDS ORDERED: ONDANSETRON *ODT* 4 MG TABLET SL ONE (21:08)
[2020-06-22] MEDS ORDERED: ONDANSETRON *ODT* 4 MG TABLET ONE (21:09)
== END 2020-06-22 21:59 | disposition home or self-care (01) ==
LOC: JER 17:26
PROC: 3E033NZ Introduction of Analgesics, Hypnotics, Sedatives into Peripheral Vein, Percutaneous Approach (ICD-10-PCS; principal; 2020-06-22)
PROC: 3E033GC Introduction of Other Therapeutic Substance into Peripheral Vein, Percutaneous Approach (ICD-10-PCS; 2020-06-22)
PROC: 3E0337Z Introduction of Electrolytic and Water Balance Substance into Peripheral Vein, Percutaneous Approach (ICD-10-PCS; 2020-06-22)
DX: R10.13 Epigastric pain (principal); R11.2 Nausea with vomiting, unspecified
CPT/HCPCS: 36415; 74177-TC; 80053; 81003; 83690; 84703; 85025; 87086; 87186; 99285-25; J0131; Q0162; Q9967

== ENCOUNTER 2022-07-02 15:39 | Emergency (ER) | payer SELFPAY ==
[2022-07-02 16:00] VITALS: BP 144/85; PULSE 90; RESP 18; TEMP 98.3; BMI 58.9
== END 2022-07-02 21:08 | disposition home or self-care (01) ==
LOC: JERFT 15:39
DX: R51.9 Headache, unspecified (principal); R63.0 Anorexia; R53.81 Other malaise; R43.9 Unspecified disturbances of smell and taste; J00 Acute nasopharyngitis [common cold]; B34.9 Viral infection, unspecified; Z20.822 Contact with and (suspected) exposure to COVID-19
CPT/HCPCS: 0241U-QW; 99283-25

== ENCOUNTER 2023-05-02 15:56 | Emergency (ER) | payer OTHER ==
[2023-05-02 16:06] VITALS: BP 157/102; PULSE 92; RESP 18; TEMP 98.2; BMI 47.2
[2023-05-02] MEDS ORDERED: TETRACAINE 0.5% OPHTH SOLN 2 ML BOTTLE ONE (17:07)
[2023-05-02] MEDS ORDERED: FLUORESCEIN NA 1 EA STRIP ONE (17:07)
[2023-05-02] MEDS: FLUORESCEIN NA 1 EA STRIP OS ONE (17:13)
[2023-05-02] MEDS: TETRACAINE 0.5% HCL 0.6ML DROPPER.BOTTLE OS ONE (17:13)
== END 2023-05-02 18:06 | disposition home or self-care (01) ==
LOC: JERFT 15:56
DX: H57.12 Ocular pain, left eye (principal); H11.89 Other specified disorders of conjunctiva
CPT/HCPCS: 99283-25

== ENCOUNTER 2024-08-04 16:58 | Emergency (ER) | payer OTHER ==
[2024-08-04 17:02] VITALS: BP 142/93; PULSE 92; RESP 18; TEMP 97.2; BMI 45.6
[2024-08-04] MEDS ORDERED: TETRACAINE 0.5% OPHTH SOLN 2 ML BOTTLE ONE (17:30)
[2024-08-04] MEDS ORDERED: FLUORESCEIN NA 1 EA STRIP ONE (17:30)
[2024-08-04] MEDS: TETRACAINE 0.5% HCL 0.6ML DROPPER.BOTTLE OD ONE (17:44)
[2024-08-04] MEDS ORDERED: IBUPROFEN 600 MG TABLET (FP) PO ONE (18:06)
[2024-08-04] MEDS: IBUPROFEN 600 MG TABLET (FP) PO ONE (18:12)
[2024-08-05 14:42] LABS: HCV DIAGNOSTIC IN-HOUSE W/RFLX NON-REACTIVE (NONREACTIVE)
[2024-08-06 20:29] LABS: HIV INTERPRETATION NEGATIVE (NEGATIVE)
== END 2024-08-04 18:20 | disposition home or self-care (01) ==
LOC: JERFT 16:58
DX: H10.31 Unspecified acute conjunctivitis, right eye (principal)
CPT/HCPCS: 36415; 86803; 87389; 99283-25